=== PATIENT | female | born 1955 | race Caucasian/White ===

== ENCOUNTER 2022-06-13 09:31 | Outpatient (CLI) | payer OTHER, SELFPAY ==
[2022-06-13 12:33] LABS: Albumin* 4.1 g/dL (3.3-5.0); Chloride* 107 mmol/L (96-114); Sodium* 140 mmol/L (135-149)
[2022-06-13 12:34] LABS: Potassium* 4.9 mmol/L (3.6-5.1)
[2022-06-13 12:36] LABS: Alanine Aminotransferase* 15 U/L (4-35); Alkaline Phosphatase* 84 U/L (40-150); Aspartate Amino Transferase* 25 U/L (12-35); Bilirubin Total* 0.6 mg/dL (0.1-1.5); Blood Urea Nitrogen* 17 mg/dL (7-30); Carbon Dioxide* 31 mmol/L (20-32); Creatinine* 0.9 mg/dL (0.5-1.5); Estimated Glomerular Filt Rate 71 ml/min; Glucose* 91 mg/dL (60-115); Total Protein* 6.6 g/dL (6.0-8.3)
[2022-06-13 12:37] LABS: Calcium* 9.6 mg/dL (8.4-10.6)
== END 2022-06-13 09:32 | disposition home or self-care (01) ==
LOC: NFLDREF 09:32
PROVIDERS: PCP Internal Medicine; Visit Provider Internal Medicine
DX: Z01.818 Encounter for other preprocedural examination (principal)
CPT/HCPCS: 80053

== ENCOUNTER 2022-06-22 07:50 | Day surgery (SDC) | payer OTHER, SELFPAY ==
[2022-06-22] VITALS (26 sets, daily range): BP systolic 91–132; BP diastolic 59–93; PULSE 16–66; RESP 12–18; TEMP 35.8–36.6; O2SAT 93–100; BMI 26.9
[2022-06-22] MEDS: fentaNYL 100 MCG/2 ML inj IVP (08:48)
[2022-06-22] MEDS: MIDAZOLAM HCL 1 MG/ML inj IVP (08:48)
[2022-06-22] MEDS: LACTATED RINGERS 1000 ML 1,000 ML 100 ML IV ×2 (08:51→10:21)
[2022-06-22] MEDS: SODIUM CHLORIDE 0.9 % (FLUSH) 10 ML SYRINGE IVF (08:51)
[2022-06-22] MEDS: ACETAMINOPHEN 500 MG TABLET 1000 MG PO ×3 (08:53→23:24)
[2022-06-22] MEDS: OXYCODONE (CR) 10 MG TAB.ER.12H PO (08:53)
[2022-06-22] MEDS: CELECOXIB 200 MG CAPSULE PO ×2 (08:53→21:04)
--- NOTE | 2022-06-22 09:02 | CRLHL7_ITS ---
For Patients: As a result of the Cures Act, medical imaging exams and procedure reports are released immediately into your electronic medical record. You may view this report before your referring provider. If you have questions, please contact your health care provider. Indication: Postop Technique: Two views left knee Findings/Impression: Hardware from a left total knee arthroplasty is in satisfactory position. Bone alignment is normal. No sign of acute fracture. Postop changes are within normal limits. Dictated by Alvaro Lopez MD @ 06/22/2022 12:20:56 PM (Electronically Signed)
--- NOTE | 2022-06-22 09:09 | P.NB_ITS ---
Nerve Block Nerve Block Time Seen by Provider: 09:09 Date Seen: 06/22/22 Type of block requested by surgeon for post-operative analgesia: geniculars Side: left Time out performed: Yes Verification of patient name: Yes Verification of date of : Yes Site marking: site marked Name of person performing procedure: Paul Continuous monitoring Was continuous monitoring of O2 sat, B/P, geography professor, recorded every 15 minutes?: Yes Procedure Checklist: sterile prep, needles and gloves Medications given in 5ml increments after negative aspiration: Ropivicaine %: 0.5 mL: 9 Needle gauge: 25 Patient tolerated procedure well: Yes Block Charges Block Charge (with Pro Fee): Genicular Nerve Block Use of Ultrasound Machine for Block: No
--- NOTE | 2022-06-22 09:09 | W.PM.NB ---
Nerve Block Nerve Block Time Seen by Provider: 09:09 Date Seen: 06/22/22 Type of block requested by surgeon for post-operative analgesia: adductor canal Side: left Time out performed: Yes Verification of patient name: Yes Verification of date of : Yes Site marking: site marked Name of person performing procedure: Paul Continuous monitoring Was continuous monitoring of O2 sat, B/P, monitor and storage bin tender, recorded every 15 minutes?: Yes Procedure Checklist: sterile prep, needles and gloves Ultrasound guided. Images saved: Yes Medications given in 5ml increments after negative aspiration: Ropivicaine %: 0.5 mL: 20 Needle gauge: 22 Decadron (mg): 10 Precedex (mcg): 25 Patient tolerated procedure well: Yes Additional comments: Needle noted adjacent to nerve Block Charges Block Charge (with Pro Fee): Femoral Nerve Use of Ultrasound Machine for Block: Yes- US Guidance/pain block
--- NOTE | 2022-06-22 09:28 | SUR.PREOP ---
TIME?OUT:?904 PT/RN/MDA?VERIFICATION?OF?SURGICAL?SITE,?PROCEDURE,?AND?CONSENT OBTAINED?PRIOR?TO?INVASIVE?PROCEDURE.
[2022-06-22] MEDS: CEFAZOLIN 2 GM INJ IVP (10:15)
[2022-06-22] MEDS: TRANEXAMIC ACID 100 MG/ML INJ 1000 MG IV (10:20)
--- NOTE | 2022-06-22 11:20 | PM.ORPRC ---
Procedure Note Date of procedure: 06/22/22 Procedure: PREOPERATIVE DIAGNOSIS: 1. Left knee osteoarthritis, primary, severe POSTOPERATIVE DIAGNOSIS: 1. Left knee osteoarthritis, primary, severe PROCEDURE: 1. Left total knee arthroplasty SURGEON: Kike Meredith MD. DIGITAL CONTENT COORDINATOR: ROLO Rodrigez - Of note, a skilled technical support assistant was critical for this case to aid in patient positioning, tissue retraction, limb manipulation/positioning, and closure. ANESTHESIA: Spinal anesthetic EBL: 50ml IMPLANTS: DePuy J&J all cemented TKA - Attune PS femur size 6 standard,, size 6 tibia, 7 mm poly spacer, 35 mm patella TOURNIQUET: 80 minutes at 300 torr COMPLICATIONS: None evident INDICATIONS: The patient is a pleasant 66-year-old female who has experienced severe left knee pain and difficulty bearing weight. Workup included x-rays which revealed severe osteoarthrosis in the knee. Given the deformity, the dysfunction, and the pain, as well as the failure of nonoperative management, recommendation was made for surgery. FINDINGS: Full-thickness chondral loss medial and patellofemoral compartments. Bicompartmental degenerative meniscus tearing. Moderate effusion upon entering the joint. Large Mendoza cyst encountered. DESCRIPTION OF PROCEDURE: Following a thorough discussion of risks, benefits, and alternatives consent was obtained and the left knee was marked. The patient was brought to the operating room and placed supine on the operating table. Induction of anesthesia was undertaken. 2 g IV Ancef and 1 g tranexamic acid was administered within 1 hr of incision preoperatively. Proper time-out was performed identifying proper patient, site, procedure. The operative extremity was prepped and draped in the appropriate sterile fashion using ChloraPrep after the patient was positioned supine with all bony prominences well padded. A longitudinal, anterior, midline skin incision was made starting approximately 3cm proximal to the superior pole of the patella and advanced distal to the tibial tubercle. A median parapatellar arthrotomy was created. A medial subperiosteal sleeve was created with knife, murray elevator and curved osteotome. The retropatellar fatpad was resected and the synovium in the suprapatellar pouch excised to visualize the anterior femoral cortex. Femoral preparation was performed via an intramedullary guide. Step drill allowed access into the femoral canal. The distal cutting guide was placed with 5? of valgus and 11 mm cut on the distal femur due to slight flexion contracture. Femur was sized using a posterior referencing guide in 3? of external rotation. This found have a best fit with the sizing noted above. The 4 in 1 cutting block was then placed, and the distal femur shaped accordingly. The box cut was then created and the trial implant inserted to confirm appropriate fit. We turned our attention to the proximal tibia. Extramedullary guide was utilized for cutting with the goal of being 90 degree cut from the mechanical axis of the tibia in the varus/valgus plane utilizing tibial crest as the primary alignment. Initially a 3 mm resection was performed from the medial tibial plateau. Ultimately, balancing was achieved in both flexion and extension in both varus and valgus. The knee was able to achieve full extension as well comfortably. The patella was initially measured and found have a thickness of 23 mm. It was resected back to approximately 14 mm. It was sized to be a best fit with as noted above. This was drilled, trial placed. All trials were placed and found to have an excellent stability and balance. At this stage, trial implants were removed, the knee was thoroughly irrigated with normal saline, and the cement was mixed. After irrigation, the knee was thoroughly dried, and cement placed, with the real tibial and femoral implants placed along with the patella. Trial poly spacer was placed and confirmed to have excellent range of motion and full extension, and the real poly spacer opened and inserted. All extra cement was removed, and a 3 min Betadine soak performed. Finally, a final irrigation round with normal saline was performed. Closure performed with 0 PDS and #0 Stratafix for the quad tendon/retinaculum. 2-0 Vicryl/Stratafix for the subcutaneous and 4-0 Monocryl for subcuticular closure. Dressings were applied and the patient was awoken from anesthesia after the tourniquet deflated and transferred the PACU in stable condition. A skilled technical support assistant was critical for this case to aid in patient positioning, tissue retraction, bone exposure, limb manipulation/positioning, patient safety, and closure. PLAN: 1. Weight bear as tolerated operative extremity. 2. 23 hr perioperative antibiotics. 3. Ice. 4. PT/OT consults for ambulation assistance/mobility education. 5. Social work consult for discharge planning. 6. DVT prophylaxis with at SCDs, Justin Hose, and aspirin twice daily.
--- NOTE | 2022-06-22 11:59 | W.ANESCHARGE ---
Anesthesia Charges Start Date/Time Anesthesia Start Date: 06/22/22 Anesthesia Start Time: 09:58 Stop Date/Time Anesthesia Stop Date: 06/22/22 Anesthesia Stop Time: 11:55 Summary Emergency: No
--- NOTE | 2022-06-22 12:03 | SUR.PHASEI ---
xray sourav for 2 views left knee
--- NOTE | 2022-06-22 12:13 | W.ANESCHARGE ---
Anesthesia Charges Start Date/Time Anesthesia Start Date: 06/22/22 Anesthesia Start Time: 09:58 Stop Date/Time Anesthesia Stop Date: 06/22/22 Anesthesia Stop Time: 11:55 Summary Emergency: No
[2022-06-22] MEDS: LACTATED RINGERS 1000 ML 1,000 ML 75 ML IV (12:40)
--- NOTE | 2022-06-22 14:18 | REH.PT ---
Checked in at 2:15 pm to attempt Eval. Pt not feeling ready; still feeling weak and groggy. Will eval tomorrow morning.
--- NOTE | 2022-06-22 14:47 | P.IMCN_ITS ---
Date of Consult Consult date: 06/22/22 Requesting Physician: Orthopedics Primary Care Provider: Merissa Toscano MD Consult Narrative Reason for consult: Medical management of comorbidities, bradycardia Narrative: Emelyn Joyce is a 66 year old female who presented to the hospital today for an elective left TKA with Dr. Deleon. Surgery went well without any operative or anesthetic complications. She has had asymptomatic bradycardia postoperatively. The rest of her vital signs have been stable. Preoperative H&P and labs reviewed, PCP is Dr. Toscano locally. Patient is generally healthy, takes no prescription meds daily. She placed a scopolamine patch preoperatively, given history of postoperative nausea. She has chronic constipation and does worry a bit about narcotic medication because of this. Her sister Maria G will be assisting her postoperatively at home. Agatha is a nonsmoker, rare alcohol drinker. She works for [employer]. Review of Systems Status of ROS: Reports: 10 or more systems reviewed and unremarkable except as noted in History and below PFSH PFS Surgical History (Updated 06/22/22 @ 14:48 by Melanie Preston MD) History of blepharoplasty (~04/2019) History of cataract extraction with lens replacement History of knee surgery (09/2007) History of nasal surgery (~02/2021) History of sinus surgery (2020) Status post brachioplasty (~07/2021) Family History (Updated 06/07/22 @ 11:37 by Cammie Lucas RN) Father Stroke Brother High blood pressure Sister High blood pressure Mother Coronary artery disease Social History Smoking Status: Never smoker How often do you have a drink containing alcohol: 2-4 times a month Alcohol type: beer and wine How many standard drinks containing alcohol do you have on a typical day: 1 or 2 How often do you have six or more drinks on one occasion: Never AUDIT-C Alcohol total score: 2 Non-prescribed substance use: over the counter (eg: immodium) Non-prescribed substance use details: acetaminophen, ibuprofen Caffeine: Yes (coffee, 3-4 cups/day) Meds Home Medications and Allergies Home Medications Medication Instructions Recorded Confirmed Type cyanocobalamin (vitamin B-12) 500 1,000 mcg PO DAILY 06/13/22 06/22/22 History mcg tablet sumatriptan succinate 50 mg tablet 50-100 mg PO .1-3 Times A Day 06/13/22 06/22/22 History Allergies Allergy/AdvReac Type Severity Reaction Status Date / Time bee venom protein (honey bee) Allergy Severe Hives Verified 06/22/22 09:20 Exam Narrative: Exam Narrative: GEN: Alert and oriented, sitting comfortably in bed and answering questions appropriately HEENT: Normal external ears, EOMIs bilaterally, no scleral icterus CV: Heart rate 45, sinus bradycardia. No concerning murmurs, rubs, or gallops R: LCTA bilaterally with adequate air movement. No concerning wheezing, rales, or rhonchi Ext: wwp, no concerning edema, wearing Justin hose bilaterally Skin: No concerning skin lesions or rashes on exposed skin Psych: Appropriate Const: Vital Signs, click to edit/add: Vital Signs - 24 hr 06/22/22 08:19 06/22/22 09:00 06/22/22 09:05 Temperature 98 F Pulse Rate 64 16 L 16 L Pulse Rate [Pulse Oximeter] Respiratory Rate 16 12 12 Blood Pressure 128/85 132/79 127/82 Blood Pressure [Le ft Arm] Pulse Oximetry 97 98 98 Oxygen Delivery Me thod Nasal Cannula Nasal Cannula Oxygen Flow Rate 2 2 06/22/22 09:10 06/22/22 11:58 06/22/22 11:55 Temperature 97.0 F L Pulse Rate 16 L 57 L 61 Pulse Rate [Pulse Oximeter] Respiratory Rate 12 16 16 Blood Pressure 125/80 97/67 101/62 Blood Pressure [Le ft Arm] Pulse Oximetry 99 96 96 Oxygen Delivery Me thod Nasal Cannula Room Air Room Air Oxygen Flow Rate 2 2 06/22/22 12:00 06/22/22 12:05 06/22/22 12:10 Temperature Pulse Rate 54 L 52 L 45 L Pulse Rate [Pulse Oximeter] Respiratory Rate 16 16 16 Blood Pressure 92/64 98/66 99/65 Blood Pressure [Le ft Arm] Pulse Oximetry 93 94 96 Oxygen Delivery Me thod Room Air Room Air Room Air Oxygen Flow Rate 2 06/22/22 12:15 06/22/22 12:20 06/22/22 12:28 Temperature 96.4 F L Pulse Rate 50 L 53 L 42 L Pulse Rate [Pulse Oximeter] Respiratory Rate 16 16 16 Blood Pressure 101/65 99/67 Blood Pressure [Le ft Arm] 95/69 Pulse Oximetry 96 98 Oxygen Delivery Me thod Room Air Room Air Oxygen Flow Rate 2 06/22/22 12:30 06/22/22 12:45 06/22/22 13:00 Temperature 96.6 F L Pulse Rate Pulse Rate [Pulse Oximeter] 39 L 41 L 42 L Respiratory Rate 16 16 16 Blood Pressure Blood Pressure [Le ft Arm] 105/64 91/63 97/65 Pulse Oximetry 98 98 97 Oxygen Delivery Me thod Room Air Room Air Room Air Oxygen Flow Rate 06/22/22 13:15 06/22/22 13:30 Temperature 97.0 F L Pulse Rate Pulse Rate [Pulse Oximeter] 43 L 41 L Respiratory Rate 14 16 Blood Pressure Blood Pressure [Le ft Arm] 96/59 L 100/64 Pulse Oximetry 97 98 Oxygen Delivery Me thod Room Air Room Air Oxygen Flow Rate Assessment and Plan Assessment and plan (1) Knee joint replacement status: Status: Acute (2) Bradycardia: Status: Acute (3) Chronic constipation: Problem comment: on Amitiza in past, (has seen GI physician Dr. Preston in past), she saw him 11/04 and he recommended pelvic floor dysfunction (she did not go), Dr. Preston placed her on plecanatide 2021 Status: Acute Plan 66-year-old female status post left TKA. Pain management and prophylaxis per orthopedic surgery team. Patient would prefer to avoid narcotics if possible given chronic constipation. She is asymptomatic from her bradycardia; will place telemetry to monitor rhythm overnight. This is presumably iatrogenic, resting heart rate typically in the low 60s. Expect routine postoperative course and discharge home tomorrow.
--- NOTE | 2022-06-22 15:02 | PC.NURSE ---
Pt. bradycardic post-op with HR 30s-40s, Dr. Sandoval and Dr. Preston notified, telemetry ordered.
[2022-06-22] MEDS: CEFAZOLIN 2 GM in 0.9 % SODIUM CHLORIDE Mini-bag 100 ML IVPB (16:51)
[2022-06-22] MEDS: HYDROmorphone 0.5 mg/0.5 ml inj IVP ×3 (17:42→23:06)
[2022-06-22] MEDS: ONDANSETRON 2 MG/ML inj 4 MG IVP (17:42)
[2022-06-22] MEDS: ASPIRIN 81 MG TABLET EC PO (21:04)
[2022-06-22] MEDS: SENNOSIDES 1 TAB TABLET 2 TAB PO (21:05)
[2022-06-22] MEDS: OXYCODONE 5 MG TABLET PO (23:25)
--- NOTE | 2022-06-22 23:32 | PC.NURSE ---
Pt up with SBA, walker, and gait belt to BR, tolerates well. 1 bout of N/V after first ambulation to BR. Zofran given with relief per eMAR. CryoCuff rotated between top of knee and back side of knee. Pt complains of pain mostly behind knee, pt states she felt ice helped behind the knee pain well.
[2022-06-23] MEDS: CEFAZOLIN 2 GM in 0.9 % SODIUM CHLORIDE Mini-bag 100 ML IVPB ×2 (00:32→08:21)
[2022-06-23 03:00] VITALS: BP 109/69; PULSE 58; RESP 18; TEMP 36.4; O2SAT 93
[2022-06-23] MEDS: ACETAMINOPHEN 500 MG TABLET 1000 MG PO ×2 (03:44→09:52)
[2022-06-23] MEDS: OXYCODONE 5 MG TABLET PO ×2 (03:44→08:54)
--- NOTE | 2022-06-23 06:07 | PC.NURSE ---
Pt. rated pain 3-4/10, scheduled and PRN pain meds administered w/relief. cryocuff to L. Knee. Dressing is clean, dry and intact. walker, gait belt, SBA. Pt. resting comfortably.
[2022-06-23 07:07] LABS: Basophils Absolute Auto 0.01 K/uL (0.00-0.30); Basophils Percent Auto 0.1 % (0.0-3.0); Hematocrit 33.1 % (33.0-51.0); Immature Granulocytes Abs Auto 0.02 K/uL (0.00-0.30); Lymphocytes Percent Auto 9.4 % (20-44); Mean Corpuscular HGB Conc 33 gm/dL (32-36); Mean Corpuscular Hemoglobin 32 pg (26-34); Mean Corpuscular Volume 95 fL (80-100); Neutrophils Percent Auto 83.3 % (42.0-72.0); Platelet Count* 144 K/uL (140-440); RDW Coefficient of Variation % 12.6 % (11.5-15.5); Red Blood Count 3.48 m/uL (4.00-5.20); White Blood Count* 8.66 K/uL (4.50-11.00)
[2022-06-23 07:21] LABS: Slide Review Reflex No
[2022-06-23 07:35] LABS: Potassium* 4.6 mmol/L (3.6-5.1); Sodium* 137 mmol/L (135-149)
[2022-06-23 07:38] LABS: Blood Urea Nitrogen* 14 mg/dL (7-30); Creatinine* 0.8 mg/dL (0.5-1.5); Est. Creatinine Clearance* 63.86; Estimated Glomerular Filt Rate 81 ml/min
[2022-06-23 08:06] VITALS: PULSE 56
[2022-06-23 08:30] VITALS: BP 102/65; PULSE 57; RESP 16; TEMP 36.6; O2SAT 96
[2022-06-23] MEDS: ASPIRIN 81 MG TABLET EC PO (08:53)
[2022-06-23] MEDS: SENNOSIDES 1 TAB TABLET 2 TAB PO (08:53)
[2022-06-23] MEDS: CELECOXIB 200 MG CAPSULE PO (08:54)
--- NOTE | 2022-06-23 11:27 | PC.NURSE ---
PATIENT DISCHARGED TO HOME WITH FAMILY, UP SBA WITH WALKER AND BELT TOLERATING WELL, RATING PAIN 4/10 BEING MANAGED WITH PRN OXYCODONE AND SCHEDULED TYLENOL, DRESSING TO LEFT KNEE CDI, CYRO CUFF TO SITE, TOLERATING REGULAR DIET, NO NAUSEA OR VOMITING, TELE SHOWING SINUS KAMLESH, DECLINING LIGHTHEADEDNESS, DIZZINESS, SOB AND CP, PATIENT VERBALIZED UNDERSTANDING OF DISCHARGE INFORMATION AND HAD NO FURTHER QUESTIONS AT THIS TIME, LEFT WITH FAMILY AT 1120.
--- NOTE | 2022-06-23 13:18 | P.DS_ITS ---
DS: Providers Provider Time Seen by Provider: 10:00 Date Seen: 06/23/22 Date of admission: 06/23/2022 Primary care physician: Merissa Toscano MD Admitting Clinician: Kike Meredith MD Consults: 06/22/22 12:22 Consult to Occupational Therapy [CONS] Routine Comment: Reason(s) for OT Consult:: ADLs Prior to Discharge Any Restrictions?:: See Comment Comment: See nursing activity order for any restrictions. Consult to Physical Therapy [CONS] Routine Comment: Ambulate in the [place] today. Reason(s) for PT Consult:: TKA [place] Protocol POD#0 Any Restrictions?:: See Comment Comment: See nursing activity order for any restrictions. Consult to Physician [CONS] Routine Comment: Consulting Provider: Hospitalists Has provider been notified: No Consult to Internal Communications Manager [CONS] Routine Comment: Reason for Consult:: Discharge Planning Needs Attending Physician on discharge: Kike Meredith MD Date of Discharge: 06/23/22 DS: Diagnosis Discharge Diagnosis (1) Status post total left knee replacement: Status: Acute (2) Postoperative anemia due to acute blood loss: Status: Acute (3) Bradycardia: Status: Acute (4) Chronic constipation: Status: Acute Problem details: on Amitiza in past, (has seen GI physician Dr. Preston in past), she saw him 11/04 and he recommended pelvic floor dysfunction (she did not go), Dr. Preston placed her on plecanatide 2021 (5) Vitamin B12 deficiency without anemia: Status: Acute Problem details: noted 07/06 (fatigue), on oral B12 replacement (6) Chronic rhinitis: Status: Acute Problem details: saw Dr. Nesbitt, ENT 08/06, s/p sinus surgery 04/09 (7) Chronic headache: Status: Acute Problem details: Tension/migraine DS: Summary Hospital Course Hospital Course: 66-year-old woman presented for an elective left total knee arthroplasty. This is undertaken successfully without complications. Did have mild postoperative anemia, asymptomatic. Able to demonstrate ability to thinking and act independently, safely enough to return home. Status at Discharge Functional status at discharge: uses cane/walker Overall status at discharge: patient is progressing back to baseline Time Spent with Patient Time attestation: Total time spent providing and/or coordinating discharge services: Time spent: Less than 30 minutes Exam Narrative: Exam Narrative: Emelyn Joyce is a 66 year old female who presented to the hospital today for an elective left TKA with Dr. Deleon. Surgery went well without any operative or anesthetic complications.? She has had asymptomatic bradycardia postoperatively.? The rest of her vital signs have been stable. Lungs are clear to auscultation. Heart tones with regular rhythm normal S1-S2. Abdomen is benign. Able to ambulate the halls with use of her walker. Const: Vital Signs, click to edit/add: Vital Signs - 24 hr 06/22/22 13:30 06/22/22 14:57 06/22/22 14:00 Temperature 97.0 F L Pulse Rate 49 L Pulse Rate [Pulse Oximeter] 41 L 44 L Respiratory Rate 16 16 Blood Pressure [Le ft Arm] 100/64 97/62 Pulse Oximetry 98 99 Oxygen Delivery Me thod Room Air Room Air Oxygen Flow Rate 06/22/22 14:30 06/22/22 15:00 06/22/22 15:00 Temperature 97.1 F L Pulse Rate 50 L Pulse Rate [Pulse Oximeter] 44 L 55 L Respiratory Rate 16 16 Blood Pressure [Le ft Arm] 107/93 H 114/84 Pulse Oximetry 97 97 Oxygen Delivery Wi thod Room Air Room Air Oxygen Flow Rate 06/22/22 19:00 06/22/22 19:00 06/22/22 19:00 Temperature 97.1 F L 97.1 F L 97.1 F L Pulse Rate Pulse Rate [Pulse Oximeter] 59 L 59 L 59 L Respiratory Rate 18 18 18 Blood Pressure [Le ft Arm] 107/76 107/76 107/76 Pulse Oximetry 99 99 99 [facility] Room Air Oxygen Flow Rate 2 06/22/22 16:00 06/22/22 17:00 06/22/22 18:00 Temperature 97.1 F L Pulse Rate Pulse Rate [Pulse Oximeter] 53 L 66 53 L Respiratory Rate 18 18 18 Blood Pressure [Le ft Arm] 108/63 109/64 119/61 Pulse Oximetry 99 100 98 Oxygen Delivery Me od Room Air Room Air Room Air Oxygen Flow Rate 2 06/22/22 23:00 06/22/22 23:00 06/22/22 23:00 Temperature 97.2 F L Pulse Rate 48 L Pulse Rate [Pulse Oximeter] 53 L 53 L Respiratory Rate 18 18 Blood Pressure [Le ft Arm] 122/68 Pulse Oximetry 96 Oxygen Delivery Me thod Room Air Oxygen Flow Rate 06/23/22 03:00 06/23/22 08:06 06/23/22 08:30 Temperature 97.6 F Pulse Rate 56 L Pulse Rate [Pulse Oximeter] 58 L 57 L Respiratory Rate 18 16 Blood Pressure [Le ft Arm] 109/69 Pulse Oximetry 93 Oxygen Delivery Me thod Room Air Oxygen Flow Rate 2 06/23/22 08:30 Temperature 97.9 F Pulse Rate Pulse Rate [Pulse Oximeter] 57 L Respiratory Rate 16 Blood Pressure [Le ft Arm] 102/65 Pulse Oximetry 96 Oxygen Delivery Me thod Room Air Oxygen Flow Rate Documenting provider has reviewed patient's vital signs: yes DS: Data Data Completed and Pending Labs on day of discharge: Labs from last 24 hours 06/23/22 06/23/22 06:24 06:24 WBC 8.66 RBC 3.48 L Hgb 11.0 L Hct 33.1 MCV 95 MCH 32 MCHC 33 RDW Coeff of Manuel 12.6 Plt Count 144 Neut % (Auto) 83.3 H Lymph % (Auto) 9.4 L [place] % (Auto) 7.0 Eos % (Auto) 0.0 Baso % (Auto) 0.1 Neut # (Auto) 7.20 H Lymph # (Auto) 0.80 L [place] # (Auto) 0.60 Eos # (Auto) 0.00 Baso # (Auto) 0.01 Abs Immat Gran (auto) 0.02 Sodium 137 Potassium 4.6 BUN 14 Creatinine 0.8 Estimated Creat Clear 63.86 Estimated GFR 81 Discharge Plan Discharge Disposition: Home, Self-Care Discharging Surgeon: Kike Meredith Follow-Up Appointment: Orthopedic surgery as planned Prescriptions: New celecoxib 200 mg capsule 200 mg PO BID Qty: 60 0RF sennosides-docusate sodium [Senna-S] 8.6-50 mg tablet 1 - 4 tab-cap PO BID PRN (Reason: constipation) Qty: 60 0RF Rx Instructions: Hold medication if experiencing loose stools. aspirin 81 mg tablet,delayed release (DR/EC) 81 mg PO BID Qty: 60 0RF Rx Instructions: Medication to help prevent blood clots postoperatively; take TWICE daily. acetaminophen 500 mg capsule 500 - 1,000 mg PO Q6H MDD 4000mg PRNQty: 100 0RF oxycodone 5 mg tablet 2.5 - 5 mg PO Q4-6H MDD 6 PRN (Reason: pain) Qty: 42 0RF Rx Instructions: Take as needed for postop pain: 2.5mg mild pain, 5mg moderate-severe pain; wean as tolerated. Continued sumatriptan succinate 50 mg tablet 50-100 mg PO .1-3 Times A Day Rx Instructions: 1-2 TAB AT ONSET OF HEADACHE, MAY REPEAT Q2H PRN, MAX 200 MG/24 HRS cyanocobalamin (vitamin B-12) 500 mcg tablet 1,000 mcg PO DAILY scopolamine base 1 mg over 3 days patch 3 day 1 patch transdermal Q3D PRN (Reason: nausea) Qty: 1 0RF Activity Level: Activity as Tolerated, Weight Bearing as Tolerated, Use Cane and Use Walker Activity Detail: Wound: ?Do not remove original dressing; we will remove this at first postop visit in 1 week. Only remove dressing if integrity is in question. ?No immersing wound in water; showering okay; light scrub with your hand and bod y soap, rinse, dab dry ?Sutures are under the skin, will dissolve; allow surgical glue to come off naturally; do not scrub the wound or apply ointments/lotions ?Call our office with any redness that streaks, excessive drainage from the wound, or wound gapping. Ice/Elevate: ?Ice as needed for swelling and discomfort (cryocuff or ice pack); elevate frequently above the heart SHAUN socks: ?Wear for 1 month, remove for 1 hour 3 times per day ?These are frustrating to take on/off, but are important for blood clot prevention for 1 month after surgery Blood Clot Prevention (DVT): ?Medication: 81 mg aspirin by mouth twice daily Driving: ?Do not drive while taking narcotic pain medication ?Anticipate 4-6 weeks no driving if operative leg is driving leg Dental: ?No elective dental work for 6 months post-op. If there is an urgent/emergent dental need, contact our office for an antibiotic prescription. Smoking/Alcohol: ?Do not smoke; do no drink alcohol especially when taking postoperative oral narcotic medication Seek Care from you Primary Care Provider if you experience the following issues in the postoperative phase and beyond: ?Bacterial infections such as: pneumonia, bacterial skin infection (cellulitis), UTI, high fever, chills unrelated to the operative body part - call your primary care physician urgently for treatment in hopes to protect your health and the metal implant. Referrals: ?PT, OT per patient preference - evaluate treat total left knee arthroplasty protocol (the training, ROM, ADLs, knee-high Shaun socks) Follow up: ?Ortho surgeon follow-up in 6 weeks; repeat radiographs three views left knee ?[facility] visit in 1 week *If there are any acute concerns regarding your surgery, please call our orthopedic clinic ([phone]) Discharge Diet: Regular Patient Instructions: Acetaminophen (By mouth), Aspirin (By mouth), Oxycodone, Rapid Release (By mouth), Celecoxib (By mouth), Senna (By mouth), Surgical Site Infections (DC), Knee Replacement (DC) Forms: Work/Release Restrictions Follow-up: [facility] [Other] - 06/24/22 1:00 pm Merissa Toscano MD [Primary Care Provider] - Abiodun Fung PA-C [Physician Sorter/Assay Tech] - 07/01/22 8:30 am Discharge Orders: Discharge Order (Routine); Ordered 06/23/22 Ordered By: Abiodun Fung
--- NOTE | 2022-06-23 16:06 | PM.ORPN ---
Subjective Subjective Time Seen by Provider: 08:00 Date Seen: 06/23/22 Principal diagnosis: Status postop day 1, left total knee arthroplasty Interval history: Patient reports doing well. No acute events over night. Pain managed with scheduled /PRN medications and ice. DVT prophylaxis 81 mg aspirin by mouth twice daily, bilateral knee high Justin stockings, and SCDs. Denies fevers, chills, aches, N/V, CP, SOB/HANDLEY, tachycardia, or lightheadedness. She informs me of chronic constipation Ortho Exam Narrative Exam Narrative: -Patient appears comfortable in bed; no apparent acute distress. She just moved with nursing staff from the chair -Alert and oriented times 3 -Operative knee swollen; soft tissues supple; no obvious erythema. Warmth appropriate -Surgical dressing clean, dry, intact; no obvious drainage, no erythematous streaking peripheral to the bandage -bilateral calves are soft, nontender; no significant swelling, edema, tenderness, erythema, discoloration, warmth, or palpable cords -2+ DP/PT pulses, intact dermatomes and myotomes distally (5/5 strength) Const Vital Signs, click to edit/add: Vital Signs - 24 hr 06/22/22 19:00 06/22/22 19:00 06/22/22 19:00 Temperature 97.1 F L 97.1 F L 97.1 F L Pulse Rate Pulse Rate [Pulse Oximeter] 59 L 59 L 59 L Respiratory Rate 18 18 18 Blood Pressure [Left Arm] 107/76 107/76 107/76 Pulse Oximetry 99 99 99 Oxygen Delivery Method Room Air Room Air Room Air Oxygen Flow Rate 2 06/22/22 17:00 06/22/22 18:00 06/22/22 23:00 Temperature Pulse Rate 48 L Pulse Rate [Pulse Oximeter] 66 53 L Respiratory Rate 18 18 Blood Pressure [Left Arm] 109/64 119/61 Pulse Oximetry 100 98 Oxygen Delivery Method Room Air Room Air Oxygen Flow Rate 06/22/22 23:00 06/22/22 23:00 06/23/22 03:00 Temperature 97.2 F L 97.6 F Pulse Rate Pulse Rate [Pulse Oximeter] 53 L 53 L 58 L Respiratory Rate 18 18 18 Blood Pressure [Left Arm] 122/68 109/69 Pulse Oximetry 96 93 Oxygen Delivery Method Room Air Room Air Oxygen Flow Rate 2 06/23/22 08:06 06/23/22 08:30 06/23/22 08:30 Temperature 97.9 F Pulse Rate 56 L Pulse Rate [Pulse Oximeter] 57 L 57 L Respiratory Rate 16 16 Blood Pressure [Left Arm] 102/65 Pulse Oximetry 96 Oxygen Delivery Method Room Air Oxygen Flow Rate Assessment and Plan Assessment and plan (1) Status post total left knee replacement: Problem details: POD 1 left total knee arthroplasty Status: Acute (2) Postoperative anemia due to acute blood loss: Problem details: Hgb 11, asymptomatic Status: Acute (3) Bradycardia: Status: Acute (4) Chronic constipation: Problem details: on Amitiza in past, (has seen GI physician Dr. Preston in past), she saw him 11/04 and he recommended pelvic floor dysfunction (she did not go), Dr. Preston placed her on plecanatide 2021 Status: Acute (5) Vitamin B12 deficiency without anemia: Problem details: noted 07/06 (fatigue), on oral B12 replacement Status: Acute (6) Chronic rhinitis: Problem details: saw Dr. Nesbitt, ENT 08/06, s/p sinus surgery 04/09 Status: Acute (7) Chronic headache: Problem details: Tension/migraine Status: Acute Plan - Complete 23 hour perioperative antibiotics. - PT/OT consult for education and assistance. - Social work consult for discharge planning - Prescribed analgesics as needed - DVT prophylaxis: 81 mg aspirin by mouth twice daily, bilateral knee high Justin Hose stockings and SCDs - Anticipation is for discharge to home with family today 06/23/2022 if the patient remains medically stable, pain is controlled, and they are safe with mobilization. She knows to watch the amount of oxycodone taking to prevent constipation.
--- NOTE | 2022-06-23 16:10 | PM.DS1 ---
DS: Providers Provider Date Seen: 06/23/22 Date of admission: Med surg recovery Primary care physician: Merissa Toscano MD Consults: 06/22/22 12:22 Consult to Occupational Therapy [CONS] Routine Comment: Reason(s) for OT Consult:: ADLs Prior to Discharge Any Restrictions?:: See Comment Comment: See nursing activity order for any restrictions. Consult to Physical Therapy [CONS] Routine Comment: Ambulate in the [place] today. Reason(s) for PT Consult:: TKA [place] Protocol POD#0 Any Restrictions?:: See Comment Comment: See nursing activity order for any restrictions. Consult to Physician [CONS] Routine Comment: Consulting Provider: Hospitalists Has provider been notified: No Consult to Molded Goods Controls Operator [CONS] Routine Comment: Reason for Consult:: Discharge Planning Needs Attending Physician on discharge: Kike Meredith MD Date of Discharge: 06/23/22 DS: Diagnosis Discharge Diagnosis (1) Status post total left knee replacement: Status: Acute Problem details: POD 1 left total knee arthroplasty DS: Summary Hospital Course Hospital Course: 66-year-old woman presented for an elective left total knee arthroplasty. This is undertaken successfully without complications. Did have mild postoperative anemia, asymptomatic. Able to demonstrate ability to thinking and act independently, safely enough to return home. The patient has a history of left knee osteoarthritis, primary, severe. After appropriate preoperative evaluation, the patient underwent left total knee arthroplasty. Postoperatively given anticoagulation for deep vein thrombosis prophylaxis. They progressed to PT/OT and were felt ready and prepared for discharged to home with appropriate pain medication and anticoagulation medications. Status at Discharge Functional status at discharge: uses cane/walker Overall status at discharge: patient is progressing back to baseline Time Spent with Patient Time attestation: Total time spent providing and/or coordinating discharge services: Time spent: Less than 30 minutes Exam Const: Vital Signs, click to edit/add: Vital Signs - 24 hr 06/22/22 19:00 06/22/22 19:00 06/22/22 19:00 Temperature 97.1 F L 97.1 F L 97.1 F L Pulse Rate Pulse Rate [Pulse Oximeter] 59 L 59 L 59 L Respiratory Rate 18 18 18 Blood Pressure [Le ft Arm] 107/76 107/76 107/76 Pulse Oximetry 99 99 99 Oxygen Delivery Me thod Room Air Room Air Room Air Oxygen Flow Rate 2 06/22/22 17:00 06/22/22 18:00 06/22/22 23:00 Temperature Pulse Rate 48 L Pulse Rate [Pulse Oximeter] 66 53 L Respiratory Rate 18 18 Blood Pressure [Le ft Arm] 109/64 119/61 Pulse Oximetry 100 98 Oxygen Delivery Me thod Room Air Room Air Oxygen Flow Rate 06/22/22 23:00 06/22/22 23:00 06/23/22 03:00 Temperature 97.2 F L 97.6 F Pulse Rate Pulse Rate [Pulse Oximeter] 53 L 53 L 58 L Respiratory Rate 18 18 18 Blood Pressure [Le ft Arm] 122/68 109/69 Pulse Oximetry 96 93 Oxygen Delivery Me thod Room Air Room Air Oxygen Flow Rate 2 06/23/22 08:06 06/23/22 08:30 06/23/22 08:30 Temperature 97.9 F Pulse Rate 56 L Pulse Rate [Pulse Oximeter] 57 L 57 L Respiratory Rate 16 16 Blood Pressure [Le ft Arm] 102/65 Pulse Oximetry 96 Oxygen Delivery Me thod Room Air Oxygen Flow Rate DS: Data Data Completed and Pending Labs on day of discharge: Labs from last 24 hours 06/23/22 06/23/22 06:24 06:24 WBC 8.66 RBC 3.48 L Hgb 11.0 L Hct 33.1 MCV 95 MCH 32 MCHC 33 RDW Coeff of Manuel 12.6 Plt Count 144 Neut % (Auto) 83.3 H Lymph % (Auto) 9.4 L [place] % (Auto) 7.0 Eos % (Auto) 0.0 Baso % (Auto) 0.1 Neut # (Auto) 7.20 H Lymph # (Auto) 0.80 L [place] # (Auto) 0.60 Eos # (Auto) 0.00 Baso # (Auto) 0.01 Abs Immat Gran (auto) 0.02 Sodium 137 Potassium 4.6 BUN 14 Creatinine 0.8 Estimated Creat Clear 63.86 Estimated GFR 81 Discharge Plan Discharge Disposition: Home, Self-Care Discharging Surgeon: Kike Meredith Follow-Up Appointment: Orthopedic surgery as planned Prescriptions: New celecoxib 200 mg capsule 200 mg PO BID Qty: 60 0RF sennosides-docusate sodium [Senna-S] 8.6-50 mg tablet 1 - 4 tab-cap PO BID PRN (Reason: constipation) Qty: 60 0RF Rx Instructions: Hold medication if experiencing loose stools. aspirin 81 mg tablet,delayed release (DR/EC) 81 mg PO BID Qty: 60 0RF Rx Instructions: Medication to help prevent blood clots postoperatively; take TWICE daily. acetaminophen 500 mg capsule 500 - 1,000 mg PO Q6H MDD 4000mg PRNQty: 100 0RF oxycodone 5 mg tablet 2.5 - 5 mg PO Q4-6H MDD 6 PRN (Reason: pain) Qty: 42 0RF Rx Instructions: Take as needed for postop pain: 2.5mg mild pain, 5mg moderate-severe pain; wean as tolerated. Continued sumatriptan succinate 50 mg tablet 50-100 mg PO .1-3 Times A Day Rx Instructions: 1-2 TAB AT ONSET OF HEADACHE, MAY REPEAT Q2H PRN, MAX 200 MG/24 HRS cyanocobalamin (vitamin B-12) 500 mcg tablet 1,000 mcg PO DAILY scopolamine base 1 mg over 3 days patch 3 day 1 patch transdermal Q3D PRN (Reason: nausea) Qty: 1 0RF Activity Level: Activity as Tolerated, Weight Bearing as Tolerated, Use Cane and Use Walker Activity Detail: Wound: ?Do not remove original dressing; we will remove this at first postop visit in 1 week. Only remove dressing if integrity is in question. ?No immersing wound in water; showering okay; light scrub with your hand and body soap, rinse, dab dry ?Sutures are under the skin, will dissolve; allow surgical glue to come off naturally; do not scrub the wound or apply ointments/lotions ?Call our office with any redness that streaks, excessive drainage from the wound, or wound gapping. Ice/Elevate: ?Ice as needed for swelling and discomfort (cryocuff or ice pack); elevate frequently above the heart SHAUN socks: ?Wear for 1 month, remove for 1 hour 3 times per day ?These are frustrating to take on/off, but are important for blood clot prevention for 1 month after surgery Blood Clot Prevention (DVT): ?Medication: 81 mg aspirin by mouth twice daily Driving: ?Do not drive while taking narcotic pain medication ?Anticipate 4-6 weeks no driving if operative leg is driving leg Dental: ?No elective dental work for 6 months post-op. If there is an urgent/emergent dental need, contact our office for an antibiotic prescription. Smoking/Alcohol: ?Do not smoke; do no drink alcohol especially when taking postoperative oral narcotic medication Seek Care from you Primary Care Provider if you experience the following issues in the postoperative phase and beyond: ?Bacterial infections such as: pneumonia, bacterial skin infection (cellulitis), UTI, high fever, chills unrelated to the operative body part - call your primary care physician urgently for treatment in hopes to protect your health and the metal implant. Referrals: ?PT, OT per patient preference - evaluate treat total left knee arthroplasty protocol (the training, ROM, ADLs, knee-high Shaun socks) Follow up: ?Ortho surgeon follow-up in 6 weeks; repeat radiographs three views left knee ?[facility] visit in 1 week *If there are any acute concerns regarding your surgery, please call our orthopedic clinic ([phone]) Discharge Diet: Regular Patient Instructions: Acetaminophen (By mouth), Aspirin (By mouth), Oxycodone, Rapid Release (By mouth), Celecoxib (By mouth), Senna (By mouth), Surgical Site Infections (DC), Knee Replacement (DC) Forms: Work/Release Restrictions Follow-up: [facility] [Other] - 06/24/22 1:00 pm Merissa Toscano MD [Primary Care Provider] - Abiodun Fung PA-C [Physician Physical Therapist Clinic Director] - 07/01/22 8:30 am Discharge Orders: Discharge Order (Routine); Ordered 06/23/22 Ordered By: Abiodun Fung
== END 2022-06-23 11:20 | disposition home or self-care (01) ==
LOC: OR 07:50 → MEDSURG 12:35
PROVIDERS: PCP Internal Medicine; Visit Provider Orthopaedic Surgery Sports Medicine
PROC: (CPT 27447; principal; 2022-06-22 09:15)
DX: M17.12 Unilateral primary osteoarthritis, left knee (principal); R00.1 Bradycardia, unspecified; K59.09 Other constipation; E53.8 Deficiency of other specified B group vitamins; J31.0 Chronic rhinitis; R51.9 Headache, unspecified
CPT/HCPCS: 27447; 01402; 36415; 51702; 64447; 64454; 73560; 76942; 82565; 84132; 84295; 84520; 85025; 97110; 97116; 97161; 97165; 97530; 97535; A9270; C1776; J0690; J1100; J1170; J2250; J2405; J2704; J2795; J3010; J7120

== ENCOUNTER 2022-07-04 20:13 | Emergency (ER) | payer OTHER, SELFPAY ==
[2022-07-04 20:20] VITALS: BP 139/98; PULSE 91; RESP 18; TEMP 36.3; O2SAT 98; BMI 27.1
--- NOTE | 2022-07-04 20:51 | CRLHL7_ITS ---
For Patients: As a result of the Century Cures Act, medical imaging exams and procedure reports are released immediately into your electronic medical record. You may view this report before your referring provider. If you have questions, please contact your health care provider. INDICATION: Abdominal pain and cramping, constipation postoperative TECHNIQUE: Abdomen/Pelvis radiograph 4 views COMPARISON: None FINDINGS: Bowel: Moderate to severe gaseous distention of the colon is present from the ascending colon to the rectosigmoid colon. Soft tissue: No evidence of pneumoperitoneum present. No suspicious calcifications noted. Bone: Unremarkable for age. IMPRESSION: 1. Moderate to severe gaseous distention of the colon is present from the ascending colon to the rectosigmoid colon. Findings may be due to a colonic ileus but evaluation with CT may be helpful to exclude distal colonic obstruction. Dictated by Hugo Dwyer MD @ 07/04/2022 10:34:57 PM Dictated by: Hugo Dwyer MD @ 07/04/2022 22:35:05 (Electronically Signed)
--- OUTSIDE RECORDS SUMMARY | 2022-07-04 21:10 | XMS_ITS | Encounter Summary ---
:1955 Author Organization [facility] Address [facility] [place] [address] Care Team Providers Name Role Phone Merissa Toscano Primary Care Provider Reason for Visit Auth/Cert Specialty Diagnoses / Procedures Referred By Contact Refer red To Contact Surgery Diagnoses PTOSIS AND DERMATOCHALASIS Sh Periop Services Procedures REPAIR, BLEPHAROPTOSIS REPAIR, LOWER EYELID, COSMETIC, WITH BLEPHAROPTOSIS REPAIR [address] [place] [address] Phone: Referral ID Status Reason Start Date Expiration Date Visits Requ ested Visits Authorized [id number] 1 1 Encounter Details Date Type Department Care Team Description 05/07/2019 Surgery [facility] Nita Mendoza [place] UPPER LID [place] PeriOP MD [place] INTERNAL PTOSIS AND Services [place] OPHTHALMIC PLASTIC BLEPHAROPLASTY REPAIR [address] SURGERY [address] [facility] [place] [phone] [address] [place] [id number] (Wo rk) Surgery Details Date/Time Status Location OR Service Patient Case Case Traum a Class Class Type Case? 05/07/19 7:30 Posted OR OR Ophthalmology Same Day AM 23 Surgery Panel 1 Procedure LRB Anes Op Region Wound Class Commen ts BILATERAL UPPER LID INTERNAL PTOSIS Bilateral General Eye I-Clean AND BLEPHAROPLASTY REPAIR COSMETIC BILATERAL LOWER LID Bilateral General Eye I-Clean BLEPHAROPLASTY AND BILATERAL BROW PTOSIS REPAIR Surgeon Surgeon Role Service Panel Nita Mendoza MD Primary Ophthalmology 1 documented in this encounter Social History Tobacco Use Types Packs/Day Years Used Date Never Smoker Smokeless Tobacco: Never Used Alcohol Use Standard Drinks/Week Comments Yes 0 (1 standard drink = 0.6 oz pure alcoho l) 1-2 beers per week Alcohol Habits Answer Date Recorded How often do you have a drink containing alcohol? Not asked How many drinks containing alcohol do you have on a Not aske d typical day when you are drinking? How often do you have six or more drinks on one Not asked occasion? Comment: 1-2 beers per week 05/07/2019 Sex Assigned at Date Recorded Not on file documented as of this encounter Last Filed Vital Signs Vital Sign Reading Time Taken Comments Blood Pressure 149/93 05/07/2019 6:24 AM CDT Pulse 54 05/07/2019 6:24 AM CDT Temperature 35.9 ??C (96.6 ??F) 05/07/2019 6:24 AM CDT Respiratory Rate 16 05/07/2019 6:24 AM CDT Oxygen Saturation 99% 05/07/2019 6:24 AM CDT Inhaled Oxygen Concentration - - Weight 94 kg (207 lb 4.8 oz) 05/07/2019 6:24 AM CDT Height 182.9 cm (6') 05/07/2019 6:24 AM CDT Body Mass Index 28.11 05/07/2019 6:24 AM CDT documented in this encounter Discharge Instructions Discharge InstructionsRosy Ovalle RN - 05/07/2019 9:54 AM CDT Same Day Surgery Discharge Instructions for Sedation and General Anesthesia ?? It's not unusual to feel dizzy, light-headed or faint for up to 24 hours after surgery or while taking pain medication. If you have these symptoms: sit for a few minutes before standing and have someone assist you when you get up to walk or use the bathroom. ?? You should rest and relax for the next 24 hours. We recommend you make arrangements to have an adult stay with you for at least 24 hours after your discharge. Avoid hazardous and strenuous activity. ?? DO NOT DRIVE any vehicle or operate mechanical equipment for 24 hours following the end of your surgery. Even though you may feel normal, your reactions may be affected by the medication you have received. ?? Do not drink alcoholic beverages for 24 hours following surgery. ?? Slowly progress to your regular diet as you feel able. It's not unusual to feel nauseated and/or vomit after receiving anesthesia. If you develop these symptoms, drink clear liquids (apple juice, heide july, broth, 7-up, etc. ) until you feel better. If your nausea and vomiting persists for 24 hours, please notify your surgeon. ?? All narcotic pain medications, along with inactivity and anesthesia, can cause constipation. Drinking plenty of liquids and increasing fiber intake will help. ?? For any questions of a medical nature, call your surgeon. ?? Do not make important decisions for 24 hours. ?? If you had general anesthesia, you may have a sore throat for a couple of days related to the breathing tube used during surgery. You may use Cepacol lozenges to help with this discomfort. If it worsens or if you develop a fever, contact your surgeon. ?? If you feel your pain is not well managed with the pain medications prescribed by your surgeon, please contact your surgeon's office to let them know so they can address your concerns. [facility] Eyelid/Orbital Surgery Discharge Instructions Dr. Nita Mendoza ICE COMPRESSES Immediately following surgery, you should begin to apply ice compresses. Apply a cold gel pack or wrap a clean washcloth around a cup of crushed ice in a plastic bag (a bag of frozen peas also works well) and hold the cold compresses directly against the closed eyelid (s).Apply cold pack for a minimumof six times daily for no longer than 15 minutes at a time. Continue cold compresses every day untilthe bruising and swelling begin to subside. This can vary for each patient, but three days may be common. HOT COMPRESSES After your swelling and bruising have begun to subside, hot compresses should be applied. Take a clean washcloth and wring it out in hot water (as warm as you can tolerate comfortably). Hold this warm compress against the closed eyelid(s) at least six times per day for 15 minutes. This should be continued for about two weeks. OINTMENT You may be given some ointment when you leave the hospital. Apply this ointment as directed per pharmacy label for 7 days. Expect some blurring of vision from the ointment. ACTIVITY Avoid heavy lifting or vigorous exercise for one week after surgery. You may resume regular activities as tolerated. You may shower and wash your hair on the day after surgery; be careful to avoid soaking the wounds or getting shampoo in your eyes. While your eyes are still swollen, it is recommended you sleep on your back and elevate your head with 2-3 pillows. MEDICATION If the doctor has given you some medications to take after surgery, please take these according to the instructions on the bottle. Pain medications may make you drowsy so do not drive, operate heavy machinery, or use alcohol while taking it. When you feel that you do not need the prescription pain medication, you may substitute Extra Strength Tylenol for mild pain by also following the directions on the bottle. If you were taking Aspirin prior to your surgery, you may resume this medication tomorrow. If you were on an anticoagulant, you may resume taking it with the next scheduled dose. WHAT TO EXPECT You should expect some slight oozing of blood from the incision site over the first two to three days after surgery. Swelling and bruising will occur for one to two weeks or longer. You may also experience itching and tearing during the first several weeks after surgery. This is part of the normal healing process QUESTIONS Please feel free to contact the office, should you have any questions that are not answered above. The phone number is . Please call immediately if you are unable to establish vision in the operative eye, you are experiencing heavy bleeding that will not stop with gentle pressure or you have any signs of an infection (greenish/yellow discharge or progressive redness). [facility] [address] [place], [place] [address] Information for Patients Discharging with a Transderm Scopolamine Patch ??? Dry mouth is a common side effect. ??? Drowsiness is another common side effect especially when combined with pain medication. Please avoid activities that require mental alertness such as driving a car or making important legal decisions. ??? Since Scopolamine can cause temporary dilation of the pupils and blurred vision if it comes in contact with the eyes; be sure to wash your hands thoroughly with soap and water immediately after handling the patch. When you remove your patch, please stick it to a tissue or paper towel for disposal. ??? Remove the patch immediately and contact a physician in the unlikely event that you experience symptoms of acute glaucoma (pain and reddening of the eyes, accompanied by dilated pupils). ??? Remove the patch if you develop any difficulties urinating. If you cannot urinate after removingyour patch, please notify your surgeon. ??? Remove the patch 24 hours after surgery. If you have questions or concerns about your procedure, call Dr. Mendoza at [phone] documented in this encounter Medications at Time of Discharge Medication Sig Dispensed Refills Start Date End Date Cyanocobalamin (VITAMIN Take 1 tablet by 0 B-12 PO) mouth daily EPINEPHrine (EPIPEN 2-TOYA) Inject 0.3 mg into 0 0.3 MG/0.3ML injection the muscle as 2-pack needed for anaphylaxis erythromycin (ROMYCIN) 5 Apply 0.5 inches 3 Tube 1 05/07 MG/GM ophthalmic topically 3 times ointmentIndications: Brow daily Apply to ptosis, bilateral brow, upper and lower eyelid skin incisions 3x per day until follow up fluticasone (FLONASE) 50 [place] 1 spray into 0 MCG/ACT nasal spray both nostrils daily methylPREDNISolone (MEDROL Follow Package 21 tablet 0 05/07 DOSEPAK) 4 MG tablet Directions therapy packIndications: Brow ptosis, bilateral SUMAtriptan (IMITREX) 50 Take 50 mg by mouth 0 MG tablet at onset of headache for migraine HYDROcodone-acetaminophen Take 1 tablet by 10 tablet 0 04/2005/10/2019 (NORCO) 5-325 MG mouth every 6 hours tabletIndications: Brow as needed for ptosis, bilateral severe pain documented as of this encounter Nursing Notes Conrad Willson RN - 05/07/2019 11:57 AM CDT Discharge instructions reviewed with patient Emelyn Joyce and neurocritical care physician (sister). Patient and caretaker grounds verbalized understanding discharge instructions, all questions answered, has no further question, and no knowledge deficit noted. AVS was given to patient/family. Prescribed medications ( including narcotic medication [place]) was/were given to the care take with an intact seal. Patient's belongings were returned to the patient and neurocritical care physician. Patient was discharged in stable condition. Patient was transferred to a wheel chair and was accompanied by volunteer service to the hospital entrance door to be discharged to patient's home. Rosy Ovalle RN - 05/07/2019 11:16 AM CDT Patient reported some nausea when she got up to chair. Cool washcloth to forehead, mandarin aromatabapplied. PNDS met, po per I&O sheet. Pt dressed, up in recliner and transported to Phase 2. Jacki Onofre RN - 05/07/2019 10:30 AM CDT Assumed cares while primary nurse went on morning break Leticia Avina RN - 05/07/2019 6:39 AM CDT Pt states she had a migraine last night. Uses imitrex or NSAID or heat pad. Took Imitrex last night. documented in this encounter Miscellaneous Notes Op Note - Nita Mendoza MD - 05/07/2019 10:08 AM CDT Pre operative diagnosis: Bilaterally visually significant dermatochalasis and ptosis;??bilateral??visually significant brow ptosis ?? Post operative diagnosis: Same as above ?? Procedure(s): ?? 1.??Bilateral??upper eyelid internal ptosis repair with blepharoplasty??with medial fat excision 2.??Bilateral brow ptosis repair (direct browplasty) 3. Bilateral lower eyelid blepharoplasty with fat resection, skin pinch and orbicularis suspension ?? Surgeon:??Nita Mendoza MD ? Anesthesia:??General anesthesia with local anesthetic ? Blood loss:??<5 cc ? Complications:??None ? Specimens:??None? Findings: nothing notable? Operative Procedure: The risks, benefits and alternatives to the procedure were discussed with the patient. The patient agreed to the planned procedure and the patient was brought to the operating room.?A time out wasperformed to ensure the correct surgical site was being operated on.??Topical anesthesia was placed in both eyes.?The eyelid skin was cleaned with isopropyl alcohol. Browplasty and??Blepharoplasty incisions??(upper and lower)??were marked with care taken to leave adequate anterior lamella to avoid post operative lagophthalmos. ?Local anesthetic was injected into the operative site(s).?The patient was prepped and draped in the usual sterile fashion. ?? Attention was turned to??the browplasty. ??An incision was made with the #15 blade along the previously placed markings. ??Tissue was removed in a subcutaneous plane. ??Hemoastasis was achieved with cautery. ??The deep tissue was closed with interrupted 4-0 vicryl suture in a buried fashion. ??The skin was closed with 5-0 Prolene in a running fashion. ?? Attention was turned to the upper eyelid blepharoplasty. ??The skin was excised with a #15 blade andthe tissue was excised in a plane between the skin and orbicularis using Monopolar cautery. Hemostasis was achieved with cautery. ??Medially, the septum was opened, and the medial fat pad was conservatively excised. ??Hemostasis was achieved with cautery.?? Next, attention was turned to the internal ptosis repair. A 4-0 silk suture was placed through the gómez line of the right upper eyelid.?The eyelid was everted over a Elliot Sarkar retractor.?Two markings were placed at the medial and lateral 1/3 of the tarsal plate.?A caliper was placed (and confirmed with a ruler) to 4.0 mm and two additional godinez were placed 4.0 mm superior to the tarsal plate.?The conjunctiva was lifted with two toothed forceps, and the Putterman clamp was placed and clamped incorporating??8.0??mm of conjunctiva/Reyes's complex.?A 6-0 chromic suture was passed from lateral to medial and back lateral under the Putterman clamp.?Next, a #15 blade was used to cut the conjunctiva from the clamp in a metal on metal fashion.?The sutures were confirmed to be intact and then were tied. The same procedure, for a total resection of??8.0??mm, was performed on the othereyelid ?? Attention was turned to the lower eyelids. Next, attention was turned to the lower eyelids. A 4-0 silk suture was placed through the meibomian gland orifices on each lower eyelid. A transconjunctival incision was made and dissection was performed in a preseptal plane down to the inferior orbital rim. ??The orbital septum was then opened and the medial and central fat pads are identified and mobilized. In between these two fat pads, the inferior oblique muscle was identified. The same dissection is then performed on the other side. Again, dissection was carried out inferior to the inferior orbital rim with a freer periosteal elevator in the preperiosteal plane. ?? The orbital septum was opened, and the fat pads were identified. Each of the three fat pads were then conservatively excised. Medially and central fat pads were left behind and a 5-0 Prolene suture waspassed through each fat pad and then each arm was passed in a preperiosteal plane into the cheek to fill the tear trough. This was performed bilaterally. During this, hemostasis was achieved with cautery.?? The same fat resection was then performed on the both sides. ??The transconjunctival incision was closed with interrupted, buried 7-0 vicryl sutures. ? Attention was directed to the inferior lower eyelids. ??A #15 blade was used to incise the skin and a skin pinch was performed with skin being excised to the lateral limbus. ??The patient's subciliary line and natural creases were used. ??A 5-0 vicryl suture was then passed from the lateral upper blepharoplasty incision into the lower incision. ??The suture was used to engage the inferior orbicularisand this suture was passed again through the upper blepharoplasty incision. ??The suture was tightened to bring the lower eyelid in a stable, ideal position. ??The same procedure was performed on the other side. Hemostasis was confirmed and the upper??eyelid skin edges were closed with interrupted and running 6-0 fast absorbing gut??sutures; the lower incisions were closed with 6-0 fast absorbing gut sutures.??Traction sutures were removed.? The eyelids were washed with wet 4x4 gauze. Antibiotic ointment was placed on each eyelid. The patient was transferred to recovery in stable position.?Ice packs were placed on each eyelid.?The patient will return for a post- operative follow up appointment, sooner with any decrease in vision, increase in pain, redness, or bleeding. ? Nita Mendoza MD documented in this encounter Plan of Treatment Not on filedocumented as of this encounter Procedures Procedure Name Priority Date/Time Associated Diagnosis Comme nts REPAIR, LOWER EYELID, 05/07/2019 7:26 AM PTOSIS AND DE RMATOCHALASIS COSMETIC, WITH PTOSIS CDT REPAIR REPAIR, PTOSIS 05/07/2019 7:26 AM PTOSIS AND DERMATOCH ALASIS CDT documented in this encounter Visit Diagnoses Not on filedocumented in this encounter Administered Medications Inactive Administered Medications - up to 3 most recent administrations Medication Order MAR Action Action Date Dose Rate Site bupivacaine 0.5% w/EPI Given 05/07/2019 8:56 AM 10 mLs Operative 20mL + lidocaine 2% CDT Site/ Surgical Site w/EPI 1:100,000 20mL PRN, Starting on Mon05/07/19 at 0856, Intra-procedure erythromycin (ROMYCIN) Given 05/07/2019 8:54 AM CDT 1 g Operative Site/Surgical ophthalmic ointment Site PRN, Starting on Mon05/07/19 at 0854, Intra-procedure HYDROcodone-acetaminophen (NORCO) 5-325 MG Given 05/07 10:53 AM CDT 1 tablet per tablet 1 tablet 1 tablet, Oral, ONCE, On Mon05/07/19 at 1100, For 1 dose, Maximum acetaminophen dose from all sources= 75 mg/kg/day not to exceed 4 grams, PACU HYDROmorphone (DILAUDID) injection 0.5 m g Given 05/07/2019 11:34 AM CDT 0.5 mg 0.5 mg, Intravenous, ONCE, On Mon05/07/19 at 1145, For 1 dose, Post-procedure prochlorperazine (COMPAZINE) injection 5 mg Given 05/07/2019 11:35 AM CDT 5 mg 5 mg, Intravenous, ONCE, Administer over 1-2 Minutes, On Mon05/07/19 at 1145, For 1 dose, For ordered IV doses 0.1-10 mg, give IV Push undiluted. Each 5mg over 1 minute., Post-procedure scopolamine (TRANSDERM) 72 hr Given 05/07/2019 7:15 AM CDT 1 pat ch Behind Right Ear patch 1 patch 1 patch, Transdermal, ONCE, On Mon05/07/19 at 0715, For 1 dose, Apply patch to skin, behind ear. Place in Pre-Op. Remove after 24 hours. Each 1.5 mg patch delivers 1 mg of scopolamine., Pre-procedure scopolamine (TRANSDERM-SCOP) Patch in Pl alexus First dose on Mon05/07/19 at 1515, For 2 4 hours, Chart every shift, confirming that patch is still in place on patient (no b arcode scan needed). See patch order for dose information., Post-procedure scopolamine (TRANSDERM-SCOP) patch REMOV AL On Mon05/08/19 at 1600, For 1 dose, Eliezer ve at 16:00 on POD 1. Remove patch 24 hours after it was placed., Post-procedure documented in this encounter Active and Recently Administered Medications Times are shown in CDT. Scheduled Medication Order 05/05/2019 05/06/2019 05/07/2019 HYDROcodone-acetaminophen (NORCO) 5-325 MG per tablet 1 tablet ( COMPLETED) 1053 (Given - Provider: Rosy Ovalle RN) 1 tablet, Oral, ONCE, Mon05/07/19 at 110 0, For 1 dose, Maximum acetaminophen dose from all sources= 75 mg/kg/day not to exceed 4 grams, PACU HYDROmorphone (DILAUDID) injection 0.5 mg (COMPLETED) 1134 (Given - Provider: Conrad Willson RN) 0.5 mg, Intravenous, ONCE, On Mon05/07/19 at 1145, For 1 dose, P ost-procedure prochlorperazine (COMPAZINE) injection 5 mg (COMPLETED) 1135 (Given - Provider: Conrad Willson RN) 5 mg, Intravenous, ONCE, Administer over 1-2 Minutes, On Mon05/07/19 at 1145, For 1 dose, For ordered IV doses 0.1-10 mg, give IV Push undiluted. Each 5mg over 1 minute., Post-procedure scopolamine (TRANSDERM) 72 hr patch 1 patch (COMPLETED) 714 (Given - Provider: Mica Gonzalez, ORTHO ASSISTANT MACHINE REPAIRMAN) 1 patch, Transdermal, ONCE, Mon05/07/19 at 0715, For 1 dose, Apply patch to skin, behind ear. Place in Pre-Op. Remove after 24 hours. Each 1.5 mg patch delivers 1 mg of scopolamine., Pre-procedure scopolamine (TRANSDERM-SCOP) Patch in Place First dose on Mon05/07/19 at 1515, For 2 4 hours, Chart every shift, confirming that patch is still in place on patient (no barcode scan needed). See patch order for dose information., Post-procedure scopolamine (TRANSDERM-SCOP) patch REMOVAL Mon05/08/19 at 1600, For 1 dose, Remove at 16:00 on POD 1. Remove patch 24 hours after it was placed., Post-procedure PRN Medication Order 05/05/2019 05/06/2019 05/07/2019 bupivacaine 0.5% w/EPI 20mL + lidocaine 2% w/EPI 1:100,000 20mL (CANCELED) 0856 (Given - Provider: Nita Mendoza MD) PRN, Starting Mon05/07/19 at 0856, Intra-procedure erythromycin (ROMYCIN) ophthalmic ointment (CANCELED) 0854 (Given - Provider: Nita Mendoza MD) PRN, Starting Mon05/07/19 at 0854, Intra-procedure documented in this encounter Care Teams Servomechanism Assembler Relationship Specialty Start Date End Date Merissa Toscano PCP - General Internal Medicine 04/16/19 [facility] [address] [place] [id number] (work) documented as of this encounter
--- OUTSIDE RECORDS SUMMARY | 2022-07-04 21:10 | XMS_ITS | Clinical Summary ---
:1955 Author Organization [facility] Address [address] [place] [id number] Care Team Providers Name Role Phone Merissa Toscano Primary Care Provider Allergies Active Allergy Reactions Severity Noted Date Comments Bee Venom Hives, Swelling 05/07/2019 Lips and lopez ds tingling Medications Medication Sig Dispensed Refills Start Date End Date Status SUMAtriptan (IMITREX) 50 Take 50 mg by 0 Active MG tablet mouth at onset of headache for migraine Cyanocobalamin (VITAMIN Take 1 tablet by 0 Active B-12 PO) mouth daily fluticasone (FLONASE) 50 [employer] 1 spray 0 Active MCG/ACT nasal spray into both nostrils daily EPINEPHrine (EPIPEN Inject 0.3 mg 0 Active 2-TOYA) 0.3 MG/0.3ML into the muscle injection 2-pack as needed for anaphylaxis methylPREDNISolone Follow Package 21 tablet 0 05/07/2019 Active (MEDROL DOSEPAK) 4 MG Directions tablet therapy packIndications: Brow ptosis, bilateral erythromycin (ROMYCIN) 5 Apply 0.5 inches 3 Tube 1 05/07/20 19 Active MG/GM ophthalmic topically 3 times ointmentIndications: daily Apply to Brow ptosis, bilateral brow, upper and lower eyelid skin incisions 3x per day until follow up Social History Tobacco Use Types Packs/Day Years [...] Assigned at Date Recorded Not on file Last Filed Vital Signs Vital Sign Reading Time Taken Comments Blood Pressure 131/88 05/07/2019 10:45 AM CDT Pulse 65 05/07/2019 10:45 AM CDT Temperature 36.9 ??C (98.4 ??F) 05/07/2019 10:45 AM CDT Respiratory Rate 12 05/07/2019 10:45 AM CDT Oxygen Saturation 94% 05/07/2019 11:57 AM CDT Inhaled Oxygen Concentration - - Weight 94 kg (207 lb 4.8 oz) 05/07/2019 6:24 AM CDT Height 182.9 cm (6') 05/07/2019 6:24 AM CDT Body Mass Index 28.11 05/07/2019 6:24 AM CDT Plan of Treatment Not on file Insurance Payer Benefit Plan / Subscriber ID Effective Phone Address T e Group Dates [facility] [id number] 2017-Pres [phone] [address]ESS [address] [place] [address] Care Teams Personnel Psychologist Relationship Specialty Start Date End Date Merissa Toscano PCP - General Internal Medicine 04/16/19 [facility] [address] [place] [address]
--- OUTSIDE RECORDS SUMMARY | 2022-07-04 21:10 | XMS_ITS | Encounter Summary ---
:1955 Author Organization [place] Address [address] [facility] [address] Care Team Providers Name Role Phone Merissa Toscano Primary Care Provider Reason for Visit Auth/Cert Specialty Diagnoses / Procedures Referred By Contact Refer red To Contact Surgery Diagnoses PTOSIS AND DERMATOCHALASIS Sh Periop Services Procedures REPAIR, BLEPHAROPTOSIS REPAIR, LOWER EYELID, COSMETIC, WITH BLEPHAROPTOSIS REPAIR [address] [place] [address] Phone: Referral ID Status Reason Start Date Expiration Date Visits Requ ested Visits Authorized [id number] 1 1 Encounter Details Date Type Department Care Team Description 05/07/[address] [facility] Rafiq Hidalgo MD [facility] [address] [place], [place] [address] [facility] Jeremy Rodríguez MD [facility] [address] [place] [id number] [address] [place] [address] Anesthesia Record Procedure Summary Procedure Name Responsible Anesthesia Start Anesthesia Stop Anesthesiologist Time Time BILATERAL UPPER LID Rafiq Hidalgo MD 05/07/19 0726 1005 INTERNAL PTOSIS AND BLEPHAROPLASTY REPAIR (Bilateral Eye) Events Date Time Event Comment 05/07/2019 0653 0726 An Start 0726 An Start Data 0733 Present 0736 An Induction 0736 An Intubation 0759 Quick Note Cosmetic portion of procedure started at 0759. 0759 AN INCISION 0817 Quick Note First cosmetic p ortion of surgery complete. [id number] was first cosmet ic portion. 0838 Quick Note Second cosmetic portion of surgery started at 0838. 0857 Present 0916 Quick Note Second portion o f cosmetic surgery finished at 09. 0953 AN Extubation 0953 Present 1000 an stop data 1005 An Stop Electronically s igned by Mica Gonzalez on May 07, 2019 10:05 AM Name Total dexamethasone 4mg/mL 8 mg fentaNYL (SUBLIMAZE) injection 100 mcg lidocaine 2% 80 mg midazolam 1mg/mL 2 mg ondansetron 2mg/mL 8 mg propofol (DIPRIVAN) injection 10 mg/mL vial 200 mg propofol infusion (mcg/kg/min) 1,658.63 mg succinylcholine 20 mg/mL 100 mg LR 1,300 mL Agents Name NO HELIOX O2 N2O Air Exp Sevoflurane Exp Isoflurane Exp Desflurane Exp N2O O2 Delivery Device Ins Sevoflurane Ins Isoflurane Ins Desflurane O2 Auxiliary Blood No blood administrations on file. Lines, Drains, and Airways Type Details Placement Removal Incision/Surgical Site 05/07/19; 0941; Left; 05/07/19 0941 by Karlene Pizarro RN Incision/Surgical Site 05/07/19; 0941; Right; 05/07/19 0941 by Karlene Pizarro RN Peripheral IV 05/07/19; 0705; 20 G; 05/07/19 0705 by 05/07/19 1209 by Right; Hand; Alcohol; Mica Gonzalez Alber to, RN Injectable; Tolerated SANDRA Parikh CDL FLATBED TRUCK DRIVER well RETIRED ETT 05/07/19; 0736; Mask 05/07/19 0736 by 05/07/19 0 953 by Ventilation: Not Mica Gonzalez Megan attempted (RSI); Ease SANDRA Parikh CDL FLATBED TRUCK DRIVER SANDRA Parikh CDL FLATBED TRUCK DRIVER of Intubation: Easy; Airway Size: 7; Cuffed; Oral; Blade Type: Tyler; Blade Size: 2; Place by: MM; Insertion Attempts: 1; Secured at (cm)to lip: 22 cm (at teeth); Breath Sounds: Equal, clear and bilateral; End Tidal CO2: Present; Dentition: Intact, Unchanged; Grade View of Cords: 1 documented in this encounter Social History [...] on file documented as of this encounter OR Notes Anesthesia Postprocedure Evaluation - Rafiq Hidalgo MD - 05/07/2019 10:47 AM CDT Patient: Emelyn Joyce Procedure(s): BILATERAL UPPER LID INTERNAL PTOSIS AND BLEPHAROPLASTY REPAIR COSMETIC BILATERAL LOWER LID BLEPHAROPLASTY AND BILATERAL BROW PTOSIS REPAIR Diagnosis:PTOSIS AND DERMATOCHALASIS Diagnosis Additional Information: No value filed. Anesthesia Type: General, LMA Note: Anesthesia Post Evaluation Patient location during evaluation: PACU Patient participation: Able to fully participate in evaluation Level of consciousness: awake and alert Pain management: adequate Airway patency: patent Cardiovascular status: acceptable and hemodynamically stable Respiratory status: acceptable Hydration status: euvolemic PONV: none Anesthetic complications: None Last vitals: Vitals: 05/07/19 1015 05/07/19 1030 05/07/19 1045 BP: 129/84 128/85 Pulse: 62 61 Resp: 18 13 12 Temp: SpO2: 98% 94% 95% Electronically Signed By: Rafiq Hidalgo MD May 07, 2019 10:47 AM Anesthesia Preprocedure Evaluation - Rafiq Hidalgo MD - 05/07/2019 6:52 AM CDT Anesthesia Pre-Procedure Evaluation Patient: Emelyn Joyce : 1955 Preoperative Diagnosis: PTOSIS AND DERMATOCHALASIS Procedure(s): BILATERAL UPPER LID INTERANAL PTOSIS AND BLEPHAROPLASTY REPAIR COSMETIC BILATERAL LOWER LID BLEPBAROPLASTY AND BILATERAL BROW PTOSIS REPAIR Past Medical History: Diagnosis Date ??? Motion sickness ??? PONV (postoperative nausea and vomiting) Past Surgical History: Procedure Laterality Date ??? ARTHROSCOPY KNEE Left Anesthesia Evaluation . Pt has had prior anesthetic. History of anesthetic complications - PONV and motion sickness ROS/MED HX ENT/Pulmonary: (+)allergic rhinitis, , . . Neurologic: (+)migraines, Cardiovascular: - neg cardiovascular ROS METS/Exercise Tolerance: Hematologic: - neg hematologic ROS Musculoskeletal: GI/Hepatic: - neg GI/hepatic ROS (-) liver disease Renal/Genitourinary: - ROS Renal section negative (-) renal disease Endo: - neg endo ROS (-) Type II DM and thyroid disease Psychiatric: Infectious Disease: Malignancy: Other: Physical Exam Normal systems: dental Airway Mallampati: II TM distance: >3 FB Neck ROM: full Dental Cardiovascular Rhythm and rate: regular Pulmonary No results found for: WBC, HGB, HCT, PLT, CRP, SED, NA, POTASSIUM, CHLORIDE, CO2, BUN, CR, GLC, MAMIE,PHOS, MAG, ALBUMIN, PROTTOTAL, ALT, AST, GGT, ALKPHOS, BILITOTAL, BILIDIRECT, LIPASE, AMYLASE, GINETTE, PTT, INR, FIBR, TSH, T4, T3, HCG, HCGS, CKTOTAL, CKMB, TROPN Preop Vitals BP Readings from Last 3 Encounters: 05/07/19 (!) 149/93 Pulse Readings from Last 3 Encounters: 05/07/19 54 Resp Readings from Last 3 Encounters: 05/07/19 16 SpO2 Readings from Last 3 Encounters: 05/07/19 99% Temp Readings from Last 1 Encounters: 05/07/19 35.9 ??C (96.6 ??F) (Oral) Ht Readings from Last 1 Encounters: 05/07/19 1.829 m (6') Wt Readings from Last 1 Encounters: 05/07/19 94 kg (207 lb 4.8 oz) Estimated body mass index is 28.11 kg/m?? as calculated from the following: Height as of this encounter: 1.829 m (6'). Weight as of this encounter: 94 kg (207 lb 4.8 oz). Anesthesia Plan History & Physical Review History and physical reviewed and following examination; no interval change. ASA Status: 2 . NPO Status: > 8 hours Plan for General and LMA with Propofol induction. Maintenance will be TIVA. PONV prophylaxis: Ondansetron (or other 5HT-3) and Dexamethasone or Solumedrol Zofran, decadron, TIVA, scopolamine patch preop Postoperative Care Postoperative pain management: IV analgesics and Oral pain medications. Consents Anesthetic plan, risks, benefits and alternatives discussed with: Patient.. Rafiq Hidalgo MD documented in this encounter Miscellaneous Notes Anesthesia Care Transfer Note - Mica Gonzalez APRN CRNA - 05/07/2019 10:05 AM CDT Images from the original note were not included. Patient: Emelyn Joyce Procedure(s): BILATERAL UPPER LID INTERNAL PTOSIS AND BLEPHAROPLASTY REPAIR COSMETIC BILATERAL LOWER LID BLEPHAROPLASTY AND BILATERAL BROW PTOSIS REPAIR Diagnosis: PTOSIS AND DERMATOCHALASIS Diagnosis Additional Information: No value filed. Anesthesia Type: General, LMA Note: Airway :Nasal Cannula Patient transferred to:PACU Comments: Pt to PACU with O2 via nasal cannula, airway patent, VSS. Report to RN.Handoff Report: Identifed the Patient, Identified the Reponsible Provider, Reviewed the pertinent medical history, Discussed the surgical course, Reviewed Intra-OP anesthesia mangement and issues during anesthesia, Set expectations for post-procedure period and Allowed opportunity for questions and acknowledgement of understanding Vitals: (Last set prior to Anesthesia Care Transfer) CDL FLATBED TRUCK DRIVER VITALS 05/07/2019 0930 - 05/07/2019 1005 05/07/2019 Resp Rate (observed): 1 (Abnormal) Resp Rate (set): 10 Electronically Signed By: Mica Gonzalez APRN CRNA May 07, 2019 10:05 AM documented in this encounter Plan of Treatment Not on filedocumented as of this encounter Visit Diagnoses Not on filedocumented in this encounter Administered Medications Inactive Administered Medications - up to 3 most recent administrations Medication Order MAR Action Action Date Dose Rate Site dexamethasone (DECADRON) injection Given 05/07/2019 7:50 AM CDT 8 mg PRN, Administer over 1 Minutes, Starting on Mon05/07/19 at 0750, Anesthesia Intra-op fentaNYL (PF) (SUBLIMAZE) injection Given 05/07/2019 7:57 AM CDT 50 mcg PRN, Administer over 3-5 Minutes, Starting on Mon05/07/19 at 0733, Anesthesia Intra-op Given 05/07/2019 7:33 AM CDT 50 mcg lactated ringers infusion New Bag 05/07/2019 8:46 AM CDT Intravenous, CONTINUOUS PRN, Anesthesia Intra-op, Starting on Mon05/07/19 at 0727, Until Mon05/07/19 at 1005 New Bag 05/07/2019 7:27 AM CDT lidocaine 2% injection (MDV) Given 05/07/2019 7:36 AM CDT 80 mg PRN, Starting on Mon05/07/19 at 0736, Anesthesia Intra-op midazolam (VERSED) injection Given 05/07/2019 7:27 AM CDT 2 mg Administer over 2 Minutes, PRN, Starting on Mon05/07/19 at 0727, Anesthesia Intra-op ondansetron (ZOFRAN) injection Given 05/07/2019 9:20 AM CDT 4 mg PRN, Administer over 2-5 Minutes, Starting on Mon05/07/19 at 0733, Anesthesia Intra-op Given 05/07/2019 7:33 AM CDT 4 mg propofol (DIPRIVAN) infusion Rate/Dose 05/07/2019 9:28 80 mcg/kg/min 45.1 mL/hr Intravenous, CONTINUOUS PRN, Change AM CDT Starting on Mon05/07/19 at 0736, Anesthesia Intra-op Rate/Dose Change 05/07/2019 9:16 AM CDT 100 mcg/kg/min 56.4 mL/hr Rate/Dose Change 05/07/2019 8:57 AM CDT 130 mcg/kg/min 73.3 mL/hr propofol (DIPRIVAN) injection 10 mg/mL v ial Given 05/07/2019 7:36 AM CDT 200 mg PRN, Starting on Mon05/07/19 at 0736, Anesthesia Intra-op succinylcholine (ANECTINE) injection Given 05/07/2019 7:36 AM CDT 100 mg PRN, Starting on Mon05/07/19 at 0736, Anesthesia Intra-op documented in this encounter Care Teams Bow Maker Relationship Specialty Start Date End Date Merissa Toscano PCP - General Internal Medicine 04/16/19 [facility] [address] [place] [address] documented as of this encounter
--- OUTSIDE RECORDS SUMMARY | 2022-07-04 21:10 | XMS_ITS | Encounter Summary ---
:1955 Author Organization [place] Address [address] [place] [address] Care Team Providers Name Role Phone Merissa Toscano Primary Care Provider Encounter Details Date Type Department Care Team Description 05/07/2019 Travel Social History Tobacco Use Types Packs/Day Years [...] on file documented as of this encounter Plan of Treatment Not on filedocumented as of this encounter Visit Diagnoses Not on filedocumented in this encounter Care Teams Storeroom Supervisor Relationship Specialty Start Date End Date Merissa Toscano PCP - General Internal Medicine 04/16/19 [facility] [address] [place] [address] documented as of this encounter
--- OUTSIDE RECORDS SUMMARY | 2022-07-04 21:10 | XMS_ITS | Encounter Summary ---
:1955 Author Organization [place] Address [facility] [place] [address] Care Team Providers Name Role Phone Merissa Toscano Primary Care Provider Reason for Visit Auth/Cert Specialty Diagnoses / Procedures Referred By Contact Refer red To Contact Surgery Diagnoses PTOSIS AND DERMATOCHALASIS Sh Periop Services Procedures REPAIR, BLEPHAROPTOSIS REPAIR, LOWER EYELID, COSMETIC, WITH BLEPHAROPTOSIS REPAIR [address], [address] [place] [address] Phone: Referral ID Status Reason Start Date Expiration Date Visits Requ ested Visits Authorized [id number] 1 1 Encounter Details Date Type Department Care Team Description 05/07/2019 Hospital Encounter [facility] Nita Mendoza ptosis, Garima Anne MD bilateral (Primary PreOP/Phase II [place] OPHTHALMIC Dx) [address] [place] [facility] [address] [address] [place] [address] [phone] Social History Tobacco Use Types Packs/Day Years [...] know so they can address your concerns. [facility] Eyelid/Orbital Surgery Discharge Instructions Dr. Nita Mendoza [...] an infection (greenish/yellow discharge or progressive redness). [facility] [address] [place], [place] [address] Information for Patients Discharging with a Transderm [...] about your procedure, call Dr. Mendoza at [phone] documented in this encounter Medications at Time [...] day until follow up fluticasone (FLONASE) 50 [place] 1 spray into 0 MCG/ACT nasal spray [...] instructions reviewed with patient Emelyn Joyce and caregivers non medical (sister). Patient and public stenographer verbalized understanding discharge instructions, all questions answered, has no further question, and no knowledge deficit noted. AVS was given to patient/family. Prescribed medications ( including narcotic medication [place]) was/were given to the care take with an intact seal. Patient's belongings were returned to the patient and caregivers non medical. Patient was discharged in stable condition. Patient [...] CDT documented in this encounter Visit Diagnoses Diagnosis Brow ptosis, bilateral - Primary documented in this encounter Administered Medications Inactive Administered Medications - up to 3 most recent administrations Medication Order MAR Action Action Date Dose Rate Site HYDROcodone-acetaminophen Given 05/07/2019 10:53 AM CDT 1 tablet (NORCO) 5-325 MG per tablet 1 tablet 1 tablet, Oral, [...] ( COMPLETED) 1053 (Given - Provider: Rosy Ovalle, RN) 1 tablet, Oral, ONCE, Mon05/07/19 at 110 0, For 1 dose, Maximum acetaminophen dose from all sources= 75 mg/kg/day not to exceed 4 grams, PACU HYDROmorphone (DILAUDID) injection 0.5 mg (COMPLETED) 1134 (Given - Provider: Conrad Willson, REMY) 0.5 mg, Intravenous, ONCE, On Mon05/07/19 at 1145, For 1 dose, P ost-procedure prochlorperazine (COMPAZINE) injection 5 mg (COMPLETED) 1135 (Given - Provider: Conrad Willson, REMY) 5 mg, Intravenous, ONCE, Administer over 1-2 Minutes, On Mon05/07/19 at 1145, For 1 dose, For ordered IV doses 0.1-10 mg, give IV Push undiluted. Each 5mg over 1 minute., Post-procedure scopolamine (TRANSDERM) 72 hr patch 1 patch (COMPLETED) 0715 (Given - Provider: Mica Gonzalez APRN AGRICULTURAL PRODUCE PACKER) 1 patch, Transdermal, ONCE, Mon05/07/19 at 0715, [...] Intra-procedure documented in this encounter Care Teams Marine Technician Relationship Specialty Start Date End Date Merissa Toscano PCP - General Internal Medicine 04/16/19 [facility] [address] [place] [id number] documented as of this encounter
[2022-07-04] MEDS: ONDANSETRON 2 MG/ML inj 4 MG IVP (21:18)
[2022-07-04] MEDS: 0.9 % SODIUM CHLORIDE 1000 ml 1,000 ML IV (21:18)
[2022-07-04 21:22] LABS: Basophils Absolute Auto 0.01 K/uL (0.00-0.30); Basophils Percent Auto 0.1 % (0.0-3.0); Eosinophils Absolute Auto 0.02 K/uL (0.00-0.50); Eosinophils Percent Auto 0.2 % (0.0-7.0); Hematocrit 36.3 % (33.0-51.0); Hemoglobin* 12.2 gm/dL (12.0-16.0); Immature Granulocytes Abs Auto 0.01 K/uL (0.00-0.30); Lymphocytes Percent Auto 7.7 % (20-44); Mean Corpuscular HGB Conc 34 gm/dL (32-36); Mean Corpuscular Hemoglobin 32 pg (26-34); Mean Corpuscular Volume 95 fL (80-100); Monocytes Percent Auto 5.7 % (0.0-11.0); Neutrophils Percent Auto 86.2 % (42.0-72.0); Platelet Count* 247 K/uL (140-440); RDW Coefficient of Variation % 13.2 % (11.5-15.5); Red Blood Count 3.82 m/uL (4.00-5.20); White Blood Count* 9.15 K/uL (4.50-11.00)
[2022-07-04 21:28] LABS: Slide Review Reflex No
[2022-07-04 22:20] VITALS: BP 128/89; PULSE 84; RESP 18; O2SAT 98
--- NOTE | 2022-07-04 22:40 | CRLHL7_ITS ---
For Patients: As a result of the Century Cures Act, medical imaging exams and procedure reports are released immediately into your electronic medical record. You may view this report before your referring provider. If you have questions, please contact your health care provider. INDICATION: Abdominal pain. TECHNIQUE: CT abdomen and pelvis acquired with 98 cc Isovue 370 IV contrast. COMPARISON: Abdominal radiographs 07/04/2022. FINDINGS: Lower chest: Unremarkable. Liver: Anterior left hepatic lobe lesion measuring 1.3 cm, likely a hemangioma. Subcentimeter hypodense focus in the right hepatic lobe is too small to accurately characterize. Gallbladder and bile ducts: Distended gallbladder with mild biliary ductal dilation, nonspecific. No stones or inflammation. Spleen: Unremarkable. Normal in size. No masses. Adrenal glands: Unremarkable. No nodules. Pancreas: Unremarkable. No mass or inflammation. Kidneys: Right renal cyst. No hydronephrosis. GI tract: Severe gaseousness distension of the large bowel with gradual tapering at the sigmoid colon. No obstructive mass identified. No evidence of volvulus. Small bowel is normal in caliber. Normal appendix. Lymph nodes: No lymphadenopathy. Vasculature: Unremarkable. Omentum/Peritoneum/Abdominal Wall: Minimal diffuse body wall edema. No free air or significant free fluid. Pelvis: Fibroid uterus. No pelvic masses. Bones: Unremarkable for age. IMPRESSION: 1. Severe gaseousness distension of the large bowel with gradual tapering at the sigmoid colon. No evidence of obstructive mass or volvulus. Findings likely reflect ileus or colonic pseudo-obstruction. 2. Distended gallbladder with mild biliary ductal dilation, nonspecific. No stones or inflammation. 3. Fibroid uterus. Please note that all CT scans at this facility use dose modulation, iterative reconstruction, and/or weight-based dosing when appropriate to reduce radiation dose to as low as reasonably achievable. Dictated by Angel Rouse MD @ 07/04/2022 11:58:52 PM (Electronically Signed)
[2022-07-04 23:36] LABS: Chloride* 104 mmol/L (96-114); Potassium* 4.1 mmol/L (3.6-5.1); Sodium* 137 mmol/L (135-149)
[2022-07-04 23:39] LABS: Blood Urea Nitrogen* 24 mg/dL (7-30); Carbon Dioxide* 26 mmol/L (20-32); Creatinine* 0.9 mg/dL (0.5-1.5); Est. Creatinine Clearance* 63.86; Estimated Glomerular Filt Rate 71 ml/min
[2022-07-04 23:40] LABS: Calcium* 9.1 mg/dL (8.4-10.6); Glucose* 131 mg/dL (60-115)
--- NOTE | 2022-07-05 11:30 | ED.ABDPAIN ---
HPI - Abdominal Pain General Chief Complaint: Unspecified Complaint, Adult Stated Complaint: CRAMPING,DRY HEAVES Time Seen by Provider: 07/04/22 20:32 Source: patient, family and RN notes reviewed Mode of arrival: ambulatory Limitations: no limitations History of Present Illness HPI narrative: 66-year-old woman presenting to the emergency department with complaint of dry heaves and intense abdominal cramping. Is 10 days out left total knee. Apparently this has been going well. Though has struggled with anesthesia related nausea and still with scopolamine patch in place. Has been now needing minimal oxycodone; taking only 1 pill earlier today. She has been taking senna. Accompanied by her sister. Reports rather poor p.o.. Is chronically prone to constipation perhaps having a bowel movement maybe twice a week and that is only if she takes medication for it usually senna. Seems as well try medication for awhile and then seems to be less effective. She did have a small hard bowel movement today, larger 1 middle of last week. She has not had any fever. No hematochezia or melena or hematemesis is described. Related Data Home Medications Medication Instructions Recorded Confirmed sumatriptan succinate 50 mg tablet 50-100 mg PO .1-3 Times A Day 06/13/22 07/04/22 Previous Rx's Medication Instructions Recorded scopolamine base 1 mg over 3 days 1 patch transdermal Q3D PRN nausea 06/13/22 transdermal patch #1 ea acetaminophen 500 mg capsule 500 - 1,000 mg PO Q6H PRN #100 caps 06/22/22 aspirin 81 mg tablet,delayed 81 mg PO BID #60 tabs 06/22/22 release celecoxib 200 mg capsule 200 mg PO BID #60 caps 06/22/22 sennosides 8.6 mg-docusate sodium 1 - 4 tab-cap PO BID PRN 06/22/22 50 mg tablet (Senna-S) constipation #60 tabs scopolamine base 1 mg over 3 days 1 patch transdermal Q3D PRN nausea 06/24/22 transdermal patch and vomiting #4 ea ondansetron 4 mg disintegrating 4 mg PO Q8H PRN nausea and 06/29/22 tablet vomiting #5 tabs hydroxyzine pamoate 25 mg capsule 25 - 50 mg PO Q6H PRN post op pain 07/01/22 (Vistaril) #60 caps oxycodone 5 mg tablet 2.5 - 5 mg PO Q4-6H PRN pain #40 07/01/22 tabs Allergies Allergy/AdvReac Type Severity Reaction Status Date / Time bee venom protein (honey bee) Allergy Severe Hives Verified 07/04/22 20:23 Review of Systems Status of ROS Reports: 6 or more systems reviewed and unremarkable except as noted in History and below [facility] Medical History Bakers cyst (2014) Surgical History History of blepharoplasty (~04/2019) History of cataract extraction with lens replacement History of knee surgery (09/2007) History of nasal surgery (~02/2021) History of sinus surgery (2020) Status post brachioplasty (~07/2021) 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) Family History Father Stroke Brother High blood pressure Sister High blood pressure Mother Coronary artery disease Social History Smoking Status: Never smoker How often do you have a drink containing alcohol: 2-4 times a month Alcohol type: beer and wine How many standard drinks containing alcohol do you have on a typical day: 1 or 2 How often do you have six or more drinks on one occasion: Never AUDIT-C Alcohol total score: 2 Non-prescribed substance use: over the counter (eg: immodium) Non-prescribed substance use details: acetaminophen, ibuprofen Caffeine: Yes (coffee, 3-4 cups/day) Exam Narrative: Exam Narrative: pleasant. Seems a little uncomfortable. Does not seem prone to demonstrations of pain. Can nerves 2 through 12 intact. Oropharynx is dry. Lungs appear to be clear with equal expansion excursion. Cardiovascular elevated rate regular rhythm. Abdomen generally diffusely tender without peritoneal signs. Full/little tense. I can not appreciate much in the way of bowel sounds if any. We will extremities without notable difficulty. Well perfused peripherally. Well-healing surgical scar on the left knee. No inflammatory changes. Const: Vital Signs, click to edit/add: Vital Signs - 24 hr 07/04/22 20:20 07/04/22 22:20 Temperature 97.4 F L Pulse Rate [Left P ulse Oximeter] 91 84 Respiratory Rate 18 18 Blood Pressure [Ri ght Upper Arm] 139/98 H 128/89 Pulse Oximetry 98 98 Oxygen Delivery Me thod Room Air Room Air Documenting provider has reviewed patient's vital signs: yes Course Course Hospital Course: She would like something for nausea as well as to be assisted with hydration. IV was placed was ordered for normal saline. Presuming some degree of constipation also ordered a Fleet's enema pending x-ray review. On my review of the two-view x-ray. She has severe colonic gaseous distension. Good deal of stool present as well. Radiology over-read also has concerns-- IMPRESSION: 1. Moderate to severe gaseous distention of the colon is present from the ascending colon to the rectosigmoid colon. Findings may be due to a colonic ileus but evaluation with CT may be helpful to exclude distal colonic obstruction. Dictated by Hugo Dwyer MD @ 07/04/2022 10:34:57 PM She is sent for CT IV contrast as well. Made numerous trips to the bathroom ultimately feels like she got rid of the ?log jam? overall improved. Vital Signs Vital signs: Initial Vital Signs Temperature 97.4 F L 07/04/22 20:20 Temperature Source Temporal Artery Scan 07/04/22 20:20 Pulse Rate 91 07/04/22 20:20 Respiratory Rate 18 07/04/22 20:20 Blood Pressure 139/98 H 07/04/22 20:20 Blood Pressure Mean 111 07/04/22 20:20 Blood Pressure Position Sitting 07/04/22 20:20 Pulse Oximetry 98 07/04/22 20:20 Oxygen Delivery Method 07/04/22 20:20 Vital Signs Temperature 97.4 F L 07/04/22 20:20 Pulse Rate 91 07/04/22 20:20 Respiratory Rate 18 07/04/22 20:20 Blood Pressure 139/98 H 07/04/22 20:20 Pulse Oximetry 98 07/04/22 20:20 Oxygen Delivery Method 07/04/22 20:20 Temperature 97.4 F L 07/04/22 20:20 Pulse Rate 84 07/04/22 22:20 Respiratory Rate 18 07/04/22 22:20 Blood Pressure 128/89 07/04/22 22:20 Pulse Oximetry 98 07/04/22 22:20 Oxygen Delivery Method 07/04/22 22:20 MDM - Abdominal Pain MDM Narrative Medical decision making narrative: Normal white count. Normal chemistries. With recurrent bowel movements is good deal improved. Re-examination of the abdomen is softer in notably much less tender. I did review images of the CT. Radiology review as follows. IMPRESSION: 1. Severe gaseousness distension of the large bowel with gradual tapering at the sigmoid colon. No evidence of obstructive mass or volvulus. Findings likely reflect ileus or colonic pseudo-obstruction. 2. Distended gallbladder with mild biliary ductal dilation, nonspecific. No stones or inflammation. 3. Fibroid uterus. I do not think she will need further oral opiates for knee pain. However did discuss potential benefit of oral naloxone in this case as well. Medical Records Attestation: I reviewed the patient's medical records. Lab Data Attestation: I reviewed the patient's lab results. Labs: Lab Results 07/04/22 07/04/22 Range/Units 21:20 Unknown WBC 9.15 (4.50-11.00) K/uL RBC 3.82 L (4.00-5.20) m/uL Hgb 12.2 (12.0-16.0) gm/dL Hct 36.3 (33.0-51.0) % MCV 95 (80-100) fL MCH 32 (26-34) pg MCHC 34 (32-36) gm/dL RDW Coeff of Manuel 13.2 (11.5-15.5) % Plt Count 247 (140-440) K/uL Neut % (Auto) 86.2 H (42.0-72.0) % Lymph % (Auto) 7.7 L (20-44) % [place] % (Auto) 5.7 (0.0-11.0) % Eos % (Auto) 0.2 (0.0-7.0) % Baso % (Auto) 0.1 (0.0-3.0) % Neut # (Auto) 7.90 H (1.7-7.0) K/uL Lymph # (Auto) 0.70 L (0.90-2.90) K/uL [place] # (Auto) 0.50 (0.00-0.90) K/UL Eos # (Auto) 0.02 (0.00-0.50) K/uL Baso # (Auto) 0.01 (0.00-0.30) K/uL Abs Immat Gran (auto) 0.01 (0.00-0.30) K/uL Sodium 137 (135-149) mmol/L Potassium 4.1 (3.6-5.1) mmol/L Chloride 104 (96-114) mmol/L Carbon Dioxide 26 (20-32) mmol/L BUN 24 (7-30) mg/dL Creatinine 0.9 (0.5-1.5) mg/dL Estimated Creat Clear 63.86 Estimated GFR 71 ml/min Glucose 131 H (60-115) mg/dL Calcium 9.1 (8.4-10.6) mg/dL Discharge Plan Discharge Clinical Impression: Partial bowel obstruction, Chronic constipation, Ileus, Abdominal pain Patient Disposition: Home w/ Parent or Adult Condition: Improved Additional Instructions: unfortunately I am hearing that magnesium citrate is not available at this time. You can generally get this [id number]. if you can locate, drink 1/2-1 bottle and repeat next day if no significant result. Alternatively dilute total of 3 cap fulls MiraLax in total of 24 oz of liquid and divided into 3 doses over the course of the morning And would consider repeating this days. yes, if taking opiates, daily senna would be a good idea. Otherwise daily docusate sodium could help. If experiencing hard stool place an enema and repeat in an hour or two if no significant result. consider only drinking clear liquids over the next 24-36 hours. diluted juices, popsicles, Jell-O, broths. going forward be sure to be getting in 2-3 L of free liquid daily. Can put 1-2 cap fulls of Benefiber or MiraLax or similar in the liquid. return for marked increase in pain, increasing abdominal distension, repeated vomiting, fever. Prescriptions: No Action hydroxyzine pamoate [Vistaril] 25 mg capsule 25 - 50 mg PO Q6H PRN (Reason: post op pain) Qty: 60 0RF oxycodone 5 mg tablet 2.5 - 5 mg PO Q4-6H MDD 6 PRN (Reason: pain) Qty: 40 0RF Rx Instructions: Take as needed for postop pain: 2.5mg mild pain, 5mg moderate-severe pain; wean as tolerated. sumatriptan succinate 50 mg tablet 50-100 mg PO .1-3 Times A Day Rx Instructions: 1-2 TAB AT ONSET OF HEADACHE, MAY REPEAT Q2H PRN, MAX 200 MG/24 HRS scopolamine base 1 mg over 3 days patch 3 day 1 patch transdermal Q3D PRN (Reason: nausea) Qty: 1 0RF celecoxib 200 mg capsule 200 mg PO BID Qty: 60 0RF sennosides-docusate sodium [Senna-S] 8.6-50 mg tablet 1 - 4 tab-cap PO BID PRN (Reason: constipation) Qty: 60 0RF Rx Instructions: Hold medication if experiencing loose stools. aspirin 81 mg tablet,delayed release (DR/EC) 81 mg PO BID Qty: 60 0RF Rx Instructions: Medication to help prevent blood clots postoperatively; take TWICE daily. acetaminophen 500 mg capsule 500 - 1,000 mg PO Q6H MDD 4000mg PRNQty: 100 0RF scopolamine base 1 mg over 3 days patch 3 day 1 patch transdermal Q3D PRN (Reason: nausea and vomiting) Qty: 4 0RF Rx Instructions: For postoperative nausea ondansetron 4 mg tablet,disintegrating 4 mg PO Q8H PRN (Reason: nausea and vomiting) Qty: 5 0RF Follow Up/Referrals: Merissa Toscano MD [Primary Care Provider] - Stand Alone Forms: [facility] Info Instructions
== END 2022-07-05 01:15 | disposition home or self-care (01) ==
PROVIDERS: Emergency Provider Family Medicine; PCP Internal Medicine
DX: K56.600 Partial intestinal obstruction, unspecified as to cause (principal); K59.00 Constipation, unspecified
CPT/HCPCS: 36415; 74019; 74177; 80048; 85025; 96374; 99283; 99284; 99285; J2405; J7030; Q9967

== ENCOUNTER 2022-08-15 10:45 | Outpatient (RCR) | payer OTHER, SELFPAY ==
--- NOTE | 2022-06-14 15:29 | PT.OPEX ---
PT [facility] PT [facility] Outpatient Eval Start: 06/10/22 07:27 Freq: Status: Active Protocol: Document 06/14/22 15:18 CLK (Rec: 06/14/22 15:23 CLK [id number]) E-Signed By Irene Ponce PT Physical Therapy Outpatient Evaluation Insurance Information Recert Due Date 09/06/22 Insurance Name Medicare B Medical Diagnosis Pre-op for Left TKR scheduled for next week, 06/22/22 Treating Diagnosis Lt knee pain Reduced stand/walk tolerance Reduced ease of ADL's Referring MD Dr Kike Hoyos Subjective Subjective Emelyn reports having Lt knee pain intermittently for the past 5+ years. I have had cortisone and lubricant injections previously. My problem is it was not terribly painfull, but my sensation was off and it would lock in place. Stairs were very difficult. Have a bakers cyst at back of knee too. Will probably have to have my Rt one done soon as well Pain Comments low to moderate Date of Last Physician Visit 04/15/22 Date of Surgery (If applicable) 06/22/22 Current Work Status Retired Preferred Name Agatha Precautions Treatment Precautions/Contraindications none reported Weight Bearing Status Full Weight Bearing Therapy Limitations/Systems Review Not Limited Objective Range of Motion Rt knee 0-129 deg Strength 4/5 Lt knee, Rt is 5/5 Swelling Rt 44 cm mid pat Lt 47 cm (bakers cyst at post knee) Balance & Gait Fairly good heel to toe and FWB Symmetric WB with sit to stand SLS 20 sec jcarlos Posture fairly good/normal Other/Pertinent Objective Demonstrated/educated in and completed proper step to gait A/D flight of 5 steps. Currently pre-op, she is able to A/D stairs reciprocally Assessment Assessment/Impression 66 yo with DX of Lt TKR which is scheduled for 06/22/22. She is seen today for pre-op education. She arrived to dept via IND ambulation without any AD. She lives with her Mother, assisting her in wheelchair bound lifestyle. Lives in a one level home. No threshold steps, no stairs. Her sister will be coming to stay after her surgery to complete her Mothers cares and do cooking, cleaning. She has access to walker and cane. Has raised toilet seat, grab bars in bathroom, step over slight 2 step to get into shower, has shower chair. Can always use her Mothers bathroom - roll in/WC accessible. Plan of Care Rehabilitation Potential Good Physical Therapy Goals 1. Educate in Pre-Op packet physical therapy (fall prevention, TKR home recovery, home reminders). 2. Educate and complete 5 reps each of HEP, given HO and written education. 3. Demo proper use of WW and A /D flight of 5 steps. Coordination/Communication With Referral Source Treatment Plan/Direct Interventions Gait Training,Therapeutic Exercises Frequency/Duration One visit only at this time. Post-Op she will resume therapy with our facility, at which time a re-evaluation will be completed and progressive goals will be established. Patient Will Be Discharged From Therapy Completion of LTG(s),Skills Plateau,Independent w/HEP, Independently Progressing Evaluation Billing Untimed Code Treatment Minutes 25 Complexity Moderate Certification Information Initial Certification Date 06/14/22 Ending Certification Date 09/06/22
== END 2023-06-08 23:59 | disposition home or self-care (01) ==
PROVIDERS: PCP Internal Medicine; Visit Provider Orthopaedic Surgery Sports Medicine
DX: M25.562 Pain in left knee (principal); Z51.89 Encounter for other specified aftercare
CPT/HCPCS: 97110; 97116; 97140; 97162; 97164

== ENCOUNTER 2022-10-20 15:04 | Outpatient (CLI) | payer MEDICARE, SELFPAY ==
--- OUTSIDE RECORDS SUMMARY | 2022-10-20 15:07 | XMS_ITS | Encounter Summary ---
:1955 Author Organization [place] Address [facility] [place] [address] Care Team Providers Name Role Phone DorcasCyndiMerissa Primary Care Provider Reason for Visit Auth/Cert Specialty Diagnoses / Procedures Referred By Contact Refer red To Contact Surgery Diagnoses PTOSIS AND DERMATOCHALASIS Sh Periop Services Procedures REPAIR, BLEPHAROPTOSIS REPAIR, LOWER EYELID, COSMETIC, WITH BLEPHAROPTOSIS REPAIR [address] [place] [address] Phone: Referral ID Status Reason Start Date Expiration Date Visits Requ ested Visits Authorized [id number] 1 1 Encounter Details Date Type Department Care Team Description 05/07/2019 Anesthesia Event [facility] Rafiq Hidalgo MD [facility] [address] [place], [place] [address] [facility] Jeremy Rodríguez MD [facility] [address] [place] [address] [address], [address] [place] [address] Anesthesia Record Procedure Summary Procedure Name Responsible Anesthesia Start Anesthesia Stop Anesthesiologist Time Time BILATERAL UPPER LID Rafiq Hidalgo MD 05/07/19 0726 1005 INTERNAL PTOSIS AND BLEPHAROPLASTY REPAIR (Bilateral: Eye) Events Date Time Event Comment 05/07/2019 0653 0726 An Start 0726 An Start Data 0733 Present 0736 An Induction 0736 An Intubation 0759 Quick Note Cosmetic portion of procedure started at 0759. 0759 AN INCISION 0817 Quick Note First cosmetic p ortion of surgery complete. [id number] was first cosmet ic portion. 0838 Quick [...] Site 05/07/19; 0941; Left; 05/07/19 0941 by Eye Karlene Burkett RN Incision/Surgical Site 05/07/19; 0941; Right; 05/07/19 0941 by Karlene Pizarro RN Peripheral IV 05/07/19; 0705; 20 G; 05/07/19 0705 by 05/07/19 1209 by Right; Hand; Alcohol; Mica Gonzalez Alber to, RN Injectable; Tolerated SANDRA Parikh CRNA well RETIRED ETT 05/07/19; 0736; Mask 05/07/19 0736 by 05/07/19 0 953 by Ventilation: Not Mica Gonzalez Megan attempted (RSI); Ease SANDRA Parikh HOUSE SERVANT SANDRA Parikh HOUSE SERVANT of Intubation: Easy; Airway Size: 7; Cuffed; Oral; Blade Type: Tyler; Blade Size: 2; Place by: MM; Insertion Attempts: 1; Secured at (cm)to lip: 22 cm (at teeth); Breath Sounds: Equal, clear and bilateral; End Tidal CO2: Present; Dentition: Intact, Unchanged; Grade View of Cords: 1 documented in this encounter Social History Tobacco Use Types Packs/Day Years Used Date Smoking Tobacco: Never Smokeless Tobacco: Never Alcohol Use Standard Drinks/Week Comments Yes 0 (1 standard drink = 0.6 oz pure alcoho l) 1-2 beers per week Sex Assigned at Date Recorded Not on [...] (Last set prior to Anesthesia Care Transfer) DAMIAN VITALS 05/07/2019 0930 - 05/07/2019 1005 05/07/2019 [...] Intra-op documented in this encounter Care Teams Vertical Roll Operator Relationship Specialty Start Date End Date Merissa Toscano PCP - General Internal Medicine 04/16/[address] [facility] [address] [place] [address] documented as of this encounter
--- OUTSIDE RECORDS SUMMARY | 2022-10-20 15:07 | XMS_ITS | Clinical Summary ---
:1955 Author Organization [place] Address [address] [place] [address] Care Team Providers Name Role Phone Merissa [...] B-12 PO) mouth daily fluticasone (FLONASE) 50 [place] 1 spray 0 Active MCG/ACT nasal spray [...] / Subscriber ID Effective Phone Address T ype Group Dates [facility] [id number] 2017-Pres [phone] [address] O OPEN ACCESS ent [address] [place] [address] Care Teams Pharmacy Stock Clerk Relationship Specialty Start Date End Date Merissa Toscano PCP - General Internal Medicine 04/16/19 [facility] [address] [place] [address]
--- OUTSIDE RECORDS SUMMARY | 2022-10-20 15:07 | XMS_ITS | Encounter Summary ---
:1955 Author Organization [place] Address [address] [place] [address] Care Team Providers Name Role Phone IrisCyndiMerissa Primary Care Provider Reason for Visit Auth/Cert Specialty Diagnoses / Procedures Referred By Contact Refer red To Contact Surgery Diagnoses PTOSIS AND DERMATOCHALASIS Sh Periop Services Procedures REPAIR, BLEPHAROPTOSIS REPAIR, LOWER EYELID, COSMETIC, WITH BLEPHAROPTOSIS REPAIR [address] [place] [address] Phone: Referral ID Status Reason Start Date Expiration Date Visits Requ ested Visits Authorized [id number] 1 1 Encounter Details Date Type Department Care Team Description 05/07/2019 Surgery [facility] Nita Mendoza [place] UPPER LID [place] [facility] MD [place] INTERNAL PTOSIS AND Services [place] OPHTHALMIC PLASTIC BLEPHAROPLASTY REPAIR [address], SURGERY [address] [facility] [place] [address] [address] [place] [id number] (Wo rk) Surgery Details Date/Time Status Location [...] know so they can address your concerns. [facility] Eyelid/Orbital Surgery Discharge Instructions Dr. Nita Mendoza [...] an infection (greenish/yellow discharge or progressive redness). [facility] [address] [place], [place] [address] Information for Patients Discharging with a Transderm [...] about your procedure, call Dr. Mendoza at [phone] documented in this encounter Medications at Time [...] day until follow up fluticasone (FLONASE) 50 [place] 1 spray into 0 MCG/ACT nasal spray [...] instructions reviewed with patient Emelyn Joyce and transitional care liaison (sister). Patient and computer installer verbalized understanding discharge instructions, all questions answered, has no further question, and no knowledge deficit noted. AVS was given to patient/family. Prescribed medications ( including narcotic medication [place]) was/were given to the care take with an intact seal. Patient's belongings were returned to the patient and transitional care liaison. Patient was discharged in stable condition. Patient [...] clamp was placed and clamped incorporating??8.0??mm of conjunctiva/Eryes's complex.?A 6-0 chromic suture was passed from [...] patch (COMPLETED) 0715 (Given - Provider: Mica Gonzalez, PRINT MANAGER WRITING MANAGER) 1 patch, Transdermal, ONCE, Mon05/07/19 at 0715, [...] Intra-procedure documented in this encounter Care Teams Procurement Cost Coordinator Relationship Specialty Start Date End Date Merissa Toscano PCP - General Internal Medicine 04/16/19 [facility] [address] [place] [id number] documented as of this encounter
--- OUTSIDE RECORDS SUMMARY | 2022-10-20 15:07 | XMS_ITS | Clinical Summary ---
:1955 Author Organization [employer] [facility] [place] [address] Care Team Providers Name Role Phone Merissa Toscano MD Primary Care Provider Allergies Active Allergy Reactions Severity Noted Date Comments Venom-Honey Bee Hives 03/26/2014 Medications Medication Sig Dispensed Refills Start Date End Date Status SUMAtriptan Take 1 tablet by 0 03/26/2014 Active (IMITREX) 25 mg mouth every 2 hours tablet if needed for Migraine. Max dose: 200mg per 24 hrs. lubiprostone Take 1 capsule by 60 capsule 11 10/26/2016 Active (AMITIZA) 24 mcg mouth 2 times daily capsuleIndications: with meals. Constipation, unspecified constipation type polyethylene Drink 3-7 quarts 4000 mL 1 09/14/2017 Active glycol-electrolyte the day prior to (GOLYTELY) colonoscopy (until 236-22.74-6.74 -5.86 no liquid or solid gram stool ) and 1 quart suspensionIndication 6 hours prior to s: Screen for colon the colonoscopy cancer lubiprostone Take 1 capsule by 90 capsule 3 08/07/2020 Active (AMITIZA) 24 mcg mouth 2 times daily capsuleIndications: with meals. Constipation, unspecified constipation type plecanatide Take 3 mg by mouth 90 Tablet 3 11/02/2021 Active (Trulance) 3 mg once daily. tabIndications: Constipation, unspecified constipation type Active Problems Problem Noted Date Routine adult health maintenance 09/25/2017 Overview: Colonoscopy 09/2017 normal, long colon r epeat in 10 years, PEG 8L Irritable bowel syndrome 02/23/2007 Headache(784.0) 02/23/2007 Immunizations Name Administration Dates Next Due Td (Age >=7 Years) 10/27/1995 Tdap 10/16/2007 Family History Medical History Relation Name Comments Heart Disease Brother Cancer-prostate Father Other Father leg aneurysm and AAA Arthritis Mother Relation Name Status Comments Brother Father Mother Social History Tobacco Use Types Packs/Day Years Used Date Never Smoker Smokeless Tobacco: Never Used Tobacco Cessation: Counseling Given: Yes Alcohol Use Standard Drinks/Week Comments Yes 0 (1 standard drink = 0.6 oz pure 1 glas s of beer or wine per week alcohol) Sex Assigned at Date Recorded Not on file Obstetrics History Last Filed Vital Signs Vital Sign Reading Time Taken Comments Blood Pressure 128/78 08/07/2020 1:26 PM CDT Pulse 73 08/07/2020 1:26 PM CDT Temperature 36.7 ??C (98.1 ??F) 10/26/2016 3:35 PM [employer]IAL WORK[employer]IC Respiratory Rate - - Oxygen Saturation 98% 08/07/2020 1:26 PM CDT Inhaled Oxygen Concentration - - Weight 93.4 kg (206 lb) 08/07/2020 1:26 PM CDT Height 182 cm (5' 11.65) 10/26/2016 3:35 PM [employer] Body Mass Index 28.21 10/26/2016 3:35 PM SOC[employer] WORK[employer] Plan of Treatment Health Maintenance Due Date Last Done Comments COVID-19 vaccine series (#1) 03/05/1956 Depression screening for age 12+ 1967 Hepatitis C screening for age 18-79 1973 Lipids for age 45-75 2000 Mammogram for age 45-75 2000 Zoster (shingles) series for age 50+ 2005 (1 of 2) Tetanus booster 10/16/2017 10/16/2007, 10/27/1995 BMI (ht and wt on same day) for age 1210/26/2017 10/26/2016 18+ DEXA/DXA scan for age 65+ 2020 Pneumococcal series for age 65+ (1 - 2020 PCV) Influenza for age 65+ 07/21/2022 Colonoscopy through age 75 09/25/2027 09/25/2017, 7, 09/25/2017 Tdap Completed 10/16/2007 Results Not on filefrom Last 3 Months Insurance Payer Benefit Plan / Subscriber ID Effective Dates Phone Addre ss Type Group [employer] [id number] 2017-Sil [address] [place] [address] Care Teams Film Printer Relationship Specialty Start Date End Date Merissa Toscano MD PCP - General Internal Medicine 02/21/121999 [place] [address]
--- OUTSIDE RECORDS SUMMARY | 2022-10-20 15:07 | XMS_ITS | Encounter Summary ---
:1955 Author Organization [place] Address [address] [place] [address] Care Team Providers Name Role Phone Merissa [...] on filedocumented in this encounter Care Teams Shuttle Fixer Relationship Specialty Start Date End Date Merissa Toscano PCP - General Internal Medicine 04/16/19 [facility] [address] [place] [address] documented as of this encounter
--- OUTSIDE RECORDS SUMMARY | 2022-10-20 15:07 | XMS_ITS | Encounter Summary ---
:1955 Author Organization [place] Address [facility] [place] [address] Care Team Providers Name Role Phone DorcasCyndiMerissa Primary Care Provider Reason for Visit Auth/Cert Specialty Diagnoses / Procedures Referred By Contact Refer red To Contact Surgery Diagnoses PTOSIS AND DERMATOCHALASIS Sh Periop Services Procedures REPAIR, BLEPHAROPTOSIS REPAIR, LOWER EYELID, COSMETIC, WITH BLEPHAROPTOSIS REPAIR [address] [place] [address] Phone: Referral ID Status Reason Start Date Expiration Date Visits Requ ested Visits Authorized [id number] 1 1 Encounter Details Date Type Department Care Team Description 05/07/2019 Hospital Encounter [facility] Nita Mendoza ptGarima gillis MD bilateral (Primary PreOP/Phase II [place] OPHTHALMIC Dx) [address] [place] [address] [facility] [address] [address] [place] [address] [phone] Social History Tobacco Use Types Packs/Day Years [...] know so they can address your concerns. [facility] Eyelid/Orbital Surgery Discharge Instructions Dr. Nita Mendoza [...] an infection (greenish/yellow discharge or progressive redness). [facility] [address] [place], [place] [address] Information for Patients Discharging with a Transderm [...] about your procedure, call Dr. Mendoza at [phone] documented in this encounter Medications at Time [...] day until follow up fluticasone (FLONASE) 50 [place] 1 spray into 0 MCG/ACT nasal spray [...] instructions reviewed with patient Emelyn Joyce and career developer (sister). Patient and efficiency manager verbalized understanding discharge instructions, all questions answered, has no further question, and no knowledge deficit noted. AVS was given to patient/family. Prescribed medications ( including narcotic medication [place]) was/were given to the care take with an intact seal. Patient's belongings were returned to the patient and career developer. Patient was discharged in stable condition. Patient [...] (COMPLETED) 0715 (Given - Provider: Mica Gonzalez, SPA ASSISTANT MANAGER AIRPLANE FLIGHT ATTENDANT SUPERVISOR) 1 patch, Transdermal, ONCE, Mon05/07/19 at 0715, [...] dose information., Post-procedure scopolamine (TRANSDERM-SCOP) patch REMOVAL 05/08/19 at 1600, For 1 dose, Remove at [...] Intra-procedure documented in this encounter Care Teams Die Try Out Worker Relationship Specialty Start Date End Date Merissa Toscano PCP - General Internal Medicine 04/16/19 [facility] [address] [place] [address] documented as of this encounter
[2022-10-20 18:13] LABS: Vitamin B12* 216 pg/mL (243-894)
== END 2022-10-20 15:05 | disposition home or self-care (01) ==
LOC: NFLDREF 15:05
PROVIDERS: PCP Internal Medicine; Visit Provider Internal Medicine
DX: E53.8 Deficiency of other specified B group vitamins (principal); Z96.659 Presence of unspecified artificial knee joint
CPT/HCPCS: 82607

== ENCOUNTER 2022-10-21 09:32 | Day surgery (SDC) | payer MEDICARE, OTHER, SELFPAY ==
[2022-10-21] VITALS (9 sets, daily range): BP systolic 118–158; BP diastolic 75–88; PULSE 56–79; RESP 16–20; TEMP 36.3–36.6; O2SAT 96–98; BMI 26.3
[2022-10-21] MEDS: LACTATED RINGERS 1000 ML 1,000 ML 100 ML IV (10:10)
[2022-10-21] MEDS: BUPIVACAINE 0.5%/EPINEPHRINE 0.9 MG (30.9 ML) INJECTION (10:10)
[2022-10-21] MEDS: SODIUM CHLORIDE 0.9 % (FLUSH) 10 ML SYRINGE IVF (10:12)
[2022-10-21] MEDS: COCAINE HCL 4 % 4 ML SOLUTION NOSTRIL-B (11:10)
[2022-10-21] MEDS: AYR SALINE NASAL GEL 1 APPLIC NOSTRIL-B (11:15)
[2022-10-21] MEDS: MUPIROCIN 1 GM PACKET 1 APPLIC TOPICAL (11:15)
--- NOTE | 2022-10-21 11:29 | W.ANESCHARGE ---
Anesthesia Charges Start Date/Time Anesthesia Start Date: 10/21/22 Anesthesia Start Time: 10:56 Stop Date/Time Anesthesia Stop Date: 10/21/22 Anesthesia Stop Time: 11:27 Summary Emergency: No
--- NOTE | 2022-10-21 11:52 | W.PM.ENTPROC ---
Procedure Note Date of procedure: 10/21/22 Procedure: Preoperative diagnosis right area 2 nasal obstruction, inferior turbinate hypertrophy right-sided Postoperative diagnosis same Procedure revision septoplasty limited and intramural cautery right inferior turbinate The patient was brought to the operating room and under sedated anesthesia the nose was decongested with cocaine pledgets. The right anterior septum was then injected as well as the anterior head of the right inferior turbinate. The turbinate cautery Wand was used to cauterize intramurally at the anterior head and along the inferior 10% anteriorly. Incision was made in the septal mucosa just anterior to the valve in the mucosa elevated over the cartilage. The cartilage was and thinned in this region with a 15 blade. I left a normal amount of cartilage there this was just thickened cartilage that was removed. The flap was laid back down nicely had a Merocel pack trimmed coated in Bactroban and placed in the valve region. The patient procedure well was taken recovery in satisfactory condition. Blood loss during procedure less than 10 mL Surgeon: Calvin Nesbitt MD
--- NOTE | 2022-10-21 11:56 | W.ANESCHARGE ---
Anesthesia Charges Start Date/Time Anesthesia Start Date: 10/21/22 Anesthesia Start Time: 10:56 Stop Date/Time Anesthesia Stop Date: 10/21/22 Anesthesia Stop Time: 11:27 Summary Emergency: No
--- NOTE | 2022-10-21 12:11 | SUR.PHASEII ---
Pt experiencing N/V at 1145, pt reports this is normal for her post anesthesia. Dr. Nesbitt notified d/t large dime size clot passed through nose. Assessed and packing still in place. Gauze changed x3 thus far with 30-40% saturation. HOB elevated. 200 cc emesis with cranberry juice/blood mix. Reglan given with Q-easy patch and cold washcloth. Will continue to monitor.
[2022-10-21] MEDS: ONDANSETRON 2 MG/ML inj 4 MG IVP (13:11)
== END 2022-10-21 13:55 | disposition home or self-care (01) ==
PROVIDERS: PCP Internal Medicine; Visit Provider Otolaryngology
PROC: (CPT 30520; principal; 2022-10-21 10:45)
DX: J34.3 Hypertrophy of nasal turbinates (principal); J34.89 Other specified disorders of nose and nasal sinuses
CPT/HCPCS: 30520; 30140; 00160; A9270; J2405; J3010; J7120

== ENCOUNTER 2023-11-21 13:26 | Outpatient (CLI) | payer MEDICARE, OTHER, SELFPAY ==
--- NOTE | 2023-11-21 13:40 | CRLHL7_ITS ---
For Patients: As a result of the Century Cures Act, medical imaging exams and procedure reports are released immediately into your electronic medical record. You may view this report before your referring provider. If you have questions, please contact your health care provider. BILATERAL SCREENING MAMMOGRAM WITH COMPUTER-AIDED DETECTION AND TOMOSYNTHESIS TECHNIQUE: CC and MLO views were obtained. These mammographic images have been obtained using full-field digital technique. These mammographic images were interpreted with the benefit of computer-aided detection. Breast Tomosynthesis was used in this interpretation. COMPARISON FILM: 05/03/22, 04/28/21, 10/02/19. FINDINGS: The breasts are heterogeneously dense, which may obscure small masses IMPRESSION: There is no radiographic evidence for malignancy. ASSESSMENT: BI-RADS Category 1: Negative RECOMMENDATION: Routine screening mammogram in 1 year. A lay language report of this examination will be provided to the patient. Alvaro Lopez M.D. Diagnostic Radiologist [email or web address] TATE/chantel / be/Dictated by: Alvaro Lopez MD @ 11/22/2023 11:23:00 AM (Electronically Signed)
== END 2023-11-21 13:27 | disposition home or self-care (01) ==
LOC: MAMMO 13:27
PROVIDERS: PCP Internal Medicine; Visit Provider Internal Medicine
DX: Z12.31 Encounter for screening mammogram for malignant neoplasm of breast (principal); R92.2 Inconclusive mammogram
CPT/HCPCS: 77063; 77067

== ENCOUNTER 2023-11-23 08:20 | Outpatient (CLI) | payer MEDICARE, OTHER, SELFPAY ==
--- OUTSIDE RECORDS SUMMARY | 2023-11-29 17:59 | XMS_ITS | Referral Summary ---
Author Name Unknown Organization [facility] Address [address] [place] [id number] Care Team Providers Care Rattlesnake Farmer Name Role Phone Merissa Toscano MD Primary Care Provider Allergies Active Allergy Reactions Criticality Noted Date Comments Bee Venom Hives,Swelling 05/07/2019 Lips and hands tingling Medications Medication Sig Dispensed Refills Start Date End Date Status SUMAtriptan (IMITREX) 50 MG tablet Take 50 mg by mouth at onset of headache for migraine 0 Active Cyanocobalamin (VITAMIN B-12 PO) Take 1 tablet by mouth daily 0 Active fluticasone (FLONASE) 50 MCG/ACT nasal spray [place] 1 spray into both nostrils daily 0 Active EPINEPHrine (EPIPEN 2-TOYA) 0.3 MG/0.3ML injection 2-pack Inject 0.3 mg into the muscle as needed for anaphylaxis 0 Active methylPREDNISolone (MEDROL DOSEPAK) 4 MG tablet therapy packIndications:Bro w ptosis, bilateral Follow Package Directions 21 tablet 0 05/07/2019 Active erythromycin (ROMYCIN) 5 MG/GM ophthalmic ointmentIndications :Brow ptosis, bilateral Apply 0.5 inches topically 3 times daily Apply to brow, upper and lower eyelid skin incisions 3x per day until follow up 3 Tube 1 05/07/2019 Active Social History Tobacco Use Types Packs/Day Years Used Date Smoking Tobacco: Never Smokeless Tobacco: Never Alcohol Use Standard Drinks/Week Comments Yes 0 (1 standard drink = 0.6 oz pur e alcohol) 1-2 beers per week Sex and Gender Information Value Date Recorded Sex Assigned at Not on file Gender Identity Not on file Sexual Orientation Not on file Last Filed Vital Signs Vital Sign Reading Time Taken Comments Blood Pressure 131/88 05/07/2019 10:45 AM CDT Pulse 65 05/07/2019 10:45 AM CDT Temperature 36.9 ??C (98.4 ??F) 05/07/2019 10:45 AM C DT Respiratory Rate 12 05/07/2019 10:45 AM CDT Oxygen Saturation 94% 05/07/2019 11:57 AM CDT Inhaled Oxygen Concentration - - Weight 94 kg (207 lb 4.8 oz) 05/07/2019 6:24 AM CDT Height 182.9 cm (6') 05/07/2019 6:24 AM CDT Body Mass Index 28.11 05/07/2019 6:24 AM CDT Plan of Treatment Not on file Care Teams Rattlesnake Farmer Relationship Specialty Start Date End Date Merissa Toscano MD [facility] [address] [place] [address] PCP - General Internal Medicine 04/16/19
--- OUTSIDE RECORDS SUMMARY | 2023-11-29 17:59 | XMS_ITS | Clinical Summary ---
Author Name Unknown Organization [facility] Address [place], [place] [address] Care Team Providers Care Rental Clerk Tool [employer] Equipment Name Role Phone Merissa Toscano MD Primary Care Provider [phone] Allergies Active Allergy Reactions Criticality Noted Date Comments Venom-Honey Bee Hives 03/26/2014 Medications Medication Sig Dispensed Refills Start Date End Date Status SUMAtriptan (IMITREX) 25 mg tablet Take 1 tablet by mouth every 2 hours if needed for Migraine. Max dose: 200mg per 24 hrs. 0 03/26/2014 Active lubiprostone (AMITIZA) 24 mcg capsuleIndications: Constipation, unspecified constipation type Take 1 capsule by mouth 2 times daily with meals. 60 capsule 11 10/26/2016 Active polyethylene glycol-electrolyte (GOLYTELY) 236-22.74-6.74 -5.86 gram suspensionIndicatio ns:Screen for colon cancer Drink 3-7 quarts the day prior to colonoscopy (until no liquid or solid stool ) and 1 quart 6 hours prior to the colonoscopy 4000 mL 1 09/14/2017 Active lubiprostone (AMITIZA) 24 mcg capsuleIndications: Constipation, unspecified constipation type Take 1 capsule by mouth 2 times daily with meals. 90 capsule 3 08/07/2020 Active plecanatide (Trulance) 3 mg tabIndications:Cons tipation, unspecified constipation type Take 3 mg by mouth once daily. 90 Tablet 3 11/02/2021 Active Active Problems Problem Noted Date Diagnosed Date Routine adult health maintenance 09/25/2017 Overview: Colonoscopy 09/2017 normal, long colon repeat in 10 years, PEG 8L Irritable bowel syndrome 02/23/2007 Headache(784.0) 02/23/2007 Encounters Date Type Department Care Team Description 11/27/2023 Telephone [facility] [address] [place] [address] Merissa Toscano MD Appointment Request from Last 3 Months Immunizations Name Administration Dates Next Due Td (Age >=7 Years) 10/27/1995 Tdap 10/16/2007 Family History Medical History Relation Name Comments Heart Disease Brother Cancer-prostate Father Other Father leg aneurysm an d AAA Arthritis Mother Relation Name Status Comments Brother Father Mother Social History Tobacco Use Types Packs/Day Years Used Date Smoking Tobacco: Never Smokeless Tobacco: Never Tobacco Cessation:Counseling Given: Yes Alcohol Use Standard Drinks/Week Comments Yes 0 (1 standard drink = 0.6 oz pure alcohol) 1 glass of beer or wine per week Social Connections Answer Date Recorded Frequency of Communication with Friends and Fami ly Not on file 11/20/2021 Financial Resource Strain Answer Date R ecorded Difficulty of Paying Living Expenses Not on file 11/20/2021 Difficulty of Paying Living Expenses Not on file 11/20/2021 Sex and Gender Information Value Date Recorded Sex Assigned at Not on file Gender Identity Not on file Sexual Orientation Not on file Obstetrics History Last Filed Vital Signs Vital Sign Reading Time Taken Comments Blood Pressure 128/78 08/07/2020 1:26 PM CDT Pulse 73 08/07/2020 1:26 PM CDT Temperature 36.7 ??C (98.1 ??F) 10/26/2016 3:35 PM CS T Respiratory Rate - - Oxygen Saturation 98% 08/07/2020 1:26 PM CDT Inhaled Oxygen Concentration - - Weight 93.4 kg (206 lb) 08/07/2020 1:26 PM CDT Height 182 cm (5' 11.65) 10/26/2016 3:35 PM REGISTERED OCCUPATIONAL THERAPIST Body Mass Index 28.21 10/26/2016 3:35 PM REGISTERED OCCUPATIONAL THERAPIST Plan of Treatment Upcoming Encounters Date Type Department Care Team (Late st Contact Info) Description 03/15/2024 1:30 PM CDT Office Visit [facility] [address] [place] [address] Jose Miguel Preston MD [address] [place] [address] Health Maintenance Due Date Last Done Comments COVID-19 vaccine series (#1) 03/05/1956 Depression screening for age 12+ 1967 Hepatitis C screening for age 18-79 1973 Lipids for age 45-75 2000 Mammogram for age 45-75 2000 Zoster (shingles) series for age 50+ (1 of 2) 2005 Tetanus booster 10/16/2017 10/16/2007, 10/27/1995 BMI (ht and wt on same day) for age 18+ 10/26/2017 10/26/2016 DEXA/DXA scan for age 65+ 2020 Pneumococcal series for age 65+ (1 of 1 - PCV) 2020 Influenza for age 65+ 07/21/2023 Colonoscopy through age 75 09/25/202709/25, 09/25/2017, 09/25/2017 Tdap Completed 10/16/2007 Care Teams Rental Clerk Tool And Equipment Relationship Specialty Start Date End Date Merissa Toscano MD [address] [place] [address] PCP - General Internal Medicine 02/21/12
--- OUTSIDE RECORDS SUMMARY | 2023-11-29 17:59 | XMS_ITS | Clinical Summary ---
Author Name Unknown Organization [facility] Address [address] [place] [id number] Care Team Providers Care Poultry Processor Name Role Phone Merissa Toscano MD Primary Care Provider [phone] Allergies Active Allergy Reactions Criticality Noted Date Comments Bee Venom Hives,Swelling 05/07/2019 Lips and hands tingling Medications Medication Sig Dispensed Refills Start Date End Date Status SUMAtriptan (IMITREX) 50 MG tablet Take 50 mg by mouth at onset of headache for migraine 0 Active Cyanocobalamin (VITAMIN B-12 PO) Take 1 tablet by mouth daily 0 Active fluticasone (FLONASE) 50 MCG/ACT nasal spray [place] 1 spray into both nostrils daily 0 [...] of Treatment Not on file Care Teams Poultry Processor Relationship Specialty Start Date End Date Merissa Toscano MD [facility] [address] [place] [address] PCP - General Internal Medicine 04/16/19
== END 2023-11-23 08:21 | disposition home or self-care (01) ==
LOC: NFLDREF 11-29 17:57
PROVIDERS: PCP Internal Medicine; Referring Provider Internal Medicine; Visit Provider Internal Medicine
DX: E53.8 Deficiency of other specified B group vitamins (principal)
CPT/HCPCS: 82607

== ENCOUNTER 2023-12-04 07:25 | Outpatient (RCR) | payer MEDICARE, OTHER, SELFPAY | END 2024-04-02 23:59 | disposition home or self-care (01) | PROVIDERS: PCP Internal Medicine; Visit Provider Internal Medicine | DX: M65.4 Radial styloid tenosynovitis [de Quervain] (principal); M79.644 Pain in right finger(s); Z51.89 Encounter for other specified aftercare | CPT/HCPCS: 97110; 97165; X5282 ==